=== PATIENT | female | born 1950 | race Caucasian/White ===

== ENCOUNTER 2017-11-25 22:26 | Inpatient (IN) | payer MEDICARE ==
[2017-11-25] MEDS ORDERED: MORPHINE SULFATE 4MG/ML PREFILLED SYRINGE IVP ONE (22:36)
[2017-11-25] MEDS ORDERED: ONDANSETRON HCL IV 4 MG/2 ML VIAL IVP ONE (22:36)
--- NOTE | 2017-11-25 22:41 | Emergency Department Record ---
History of Present Illness - General Chief complaint: Nausea, Vomiting, Diarrhea Stated complaint: VDIARRHEA WITH BLOOD,VOMITING Time Seen by Provider: 11/25/17 22:35 Source: Patient Mode of Arrival: Ambulatory Limitations: No limitations - History of Present Illness Initial comments: 67 yo female presents to ED for evaluation of nausea, vomiting, and blood diarrhea that began approximately 4-5 hours ago. Patient denies recent illness , reports that she ate dinner this evening and felt fine before her symptoms began. Patient denies the use of anticoagulation medications, denies previous abdominal surgeries, and denies health problems at her baseline. MD complaint: Abdominal pain, Diarrhea, Nausea, Vomiting Onset/Timin -: Hour(s) Description of Diarrhea: Bloody Associated Abdominal Pain: Yes Location: Diffuse Severity: Moderate Quality: Cramping Consistency: Constant Improves with: None Worsens with: None Associated Symptoms: Denies other symptoms - Related Data Home Medications Medication Instructions Recorded Confirmed Last Taken Hydrochlorothiazide [Hctz] 50 mg PO DAILY 11/26/17 11/26/17 Unknown Allergies Allergy/AdvReac Type Severity Reaction Status Date / Time No Known Drug Allergies Allergy Verified 11/25/17 22:43 Review of Systems Constitutional: Denies: Chills, Fever, Malaise, Night sweats Eyes: Denies: Eye discharge, Eye pain ENT: Denies: Congestion, Ear pain, Epistaxis Respiratory: Denies: Cough, Dyspnea Cardiovascular: Denies: Chest pain, Dyspnea on exertion Endocrine: Denies: Fatigue, Heat or cold intolerance Gastrointestinal: Reports: Abdominal pain, Diarrhea, Nausea, Vomiting Genitourinary: Denies: Incontinence, Retention Musculoskeletal: Denies: Arthralgia, Back pain Skin: Denies: Bruising, Change in color, Change in hair/nails Neurological: Denies: Abnormal gait, Confusion, Headache, Seizure Psychiatric: Denies: Anxiety Hematological/Lymphatic: Denies: Anemia, Blood Clots Physical Exam - General General Appearance: Alert, Oriented x3, Cooperative, Moderate distress Limitations: No limitations - Head Head exam: Atraumatic, Normocephalic, Normal inspection Head exam detail: negative: Abrasion, Contusion, Quinn's sign, General tenderness, Hematoma, Laceration - Eye Eye exam: Normal appearance. negative: Conjunctival injection, Periorbital swelling, Periorbital tenderness, Scleral icterus - ENT Ear exam: negative: Auricular hematoma, Auricular trauma Nasal Exam: negative: Active bleeding, Discharge, Dried blood, Foreign body Mouth exam: negative: Drooling, Laceration, Muffled voice, Tongue elevation - Neck Neck exam: Normal inspection. negative: Meningismus, Tenderness - Respiratory Respiratory exam: Normal lung sounds bilaterally. negative: Rales, Respiratory distress, Rhonchi, Stridor - Cardiovascular Cardiovascular Exam: Regular rate, Normal rhythm, Normal heart sounds - GI/Abdominal GI/Abdominal exam: Soft, Tenderness (Mild, diffuse TTP on examination without rebound, guarding, or peritoneal signs). negative: Rebound, Rigid - Rectal Rectal exam: Deferred - exam: Deferred - Extremities Extremities exam: Normal inspection. negative: Pedal edema, Tenderness - Back Back exam: Denies: CVA tenderness (R), CVA tenderness (L) - Neurological Neurological exam: Alert, Normal gait, Oriented X3 - Psychiatric Psychiatric exam: Normal affect, Normal mood - Skin Skin exam: Normal color. negative: Abrasion Type of lesion: negative: abrasion Course Vital Signs 11/25/17 22:33 Pulse Rate [ 92 H Pulse Ox Probe] Respiratory 20 Rate Blood Pressure 148/90 [Left Arm] Pulse Ox 98 - Reevaluation(s) Reevaluation #1: 11/25/17 23:04 Labs reviewed: WBC 14.9, 87% neutrophils AG 20 BUN 29/Creatinine 0.9 Lactic 2.7 Reevaluation #2: 11/26/17 00:05 CT Abdomen and Pelvis: Mild wall thickening of the sigmoid colon, could represent focal colitis Patient was updated on all results, reports continued pain and nausea symptoms. Will administer IV antibiotics, continue potassium replacement, and admit for further evaluation. Reevaluation #3: 11/26/17 06:48 Case was discussed with Christa Walton, will accept admission a this time. Medical Decision Making - Lab Data Result diagrams: 11/25/17 22:42 11/25/17 22:42 Disposition Disposition: Admit Clinical Impression: Colitis Nausea & vomiting Qualifiers: Vomiting type: unspecified Vomiting Intractability: intractable Qualified Code( s): R11.2 - Nausea with vomiting, unspecified Disposition: Still a Patient at [facility] Decision to Admit: Admit from ER Decision to Admit Date: 11/26/17 Decision to Admit Time: 00:07 Condition: (2) Stable Time of Disposition: 00:07 Quality - Quality Measures Quality Measures: N/A - Blood Pressure Screening Does Patient Have Any of the Following: No Blood Pressure Classification: Hypertensive Reading Systolic Measurement: 145 Diastolic Measurement: 79 Screening for High Blood Pressure: < First Hypertensive BP, F/U Documented > [ [id number]] First Hypertensive Follow-up Interventions: Referral to alternative/primary care provider.
[2017-11-25] MEDS ORDERED: 0.9 % SODIUM CHLORIDE 1000ML 1,000 ML IV SCH (22:45)
[2017-11-25 22:47] LABS: BASO % 0.2 % (0-6); EOS % 0.5 % (0-6); HEMATOCRIT 41.9 % (35.0-47.0); LYMPH % 7.3 % (16-45); MEAN CELL VOLUME 91.9 fl (81-97); MEAN CORPUSCULAR HEMOGLOBIN 30.7 pg (27-33); MEAN CORPUSCULAR HGB CONC 33.4 g/dl (32-36); MEAN PLATELET VOLUME 10.1 fl (7.4-10.4); MONO % 4.8 % (0-9); PLATELET COUNT 257 K/uL (130-400); RED BLOOD COUNT 4.56 M/uL (3.80-5.40); RED CELL DISTRIBUTION WIDTH 13.7 % (11.5-14.5); WHITE BLOOD COUNT W/O DIFF 14.9 K/uL (4.2-12.2)
[2017-11-25 23:00] LABS: BLOOD UREA NITROGEN 29 mg/dL (8-23); CREATININE 0.9 mg/dL (0.5-0.9); EST GLOMERULAR FILTRATION RATE > 60 mL/min
[2017-11-25 23:01] LABS: TOTAL PROTEIN 6.9 g/dL (6.6-8.7)
[2017-11-25 23:03] LABS: GLUCOSE,RANDOM 203 mg/dL (74-109)
[2017-11-25 23:06] LABS: ALB/GLOB RATIO 1.9 (1.1-1.8); ALBUMIN 4.5 g/dL (4.0-5.0); ALKALINE PHOSPHATASE 83 U/L (35-104); ALT/SGPT 14 U/L (<33); AST/SGOT 20 U/L (10.0-35.0); LIPASE 32 U/L (13-60)
[2017-11-25 23:12] LABS: ABO GROUP O; RH TYPE POSITIVE
[2017-11-25 23:24] LABS: ANTIBODY SCREEN NEGATIVE (NEGATIVE)
[2017-11-25] MEDS: SOD CHLOR 0.9% WITH KCL 40MEQ 40 MEQ/1,000 ML IV.SOLN IV ONE (23:47)
[2017-11-26] MEDS ORDERED: 0.9 % SODIUM CHLORIDE 1000ML 1,000 ML IV PRN (00:31)
[2017-11-26] MEDS ORDERED: ONDANSETRON HCL IV 4 MG/2 ML VIAL IVP ONE (00:35)
[2017-11-26] MEDS ORDERED: FAMOTIDINE IV 20 MG/2 ML VIAL IVP ONE (01:29)
[2017-11-26] MEDS: MORPHINE SULFATE 4MG/ML PREFILLED SYRINGE IVP PRN ×2 (02:47→06:46)
[2017-11-26] MEDS: ONDANSETRON HCL IV 4 MG/2 ML VIAL IVP PRN (05:56)
[2017-11-26] MEDS ORDERED: SOD CHLOR 0.9% WITH KCL 40MEQ 40 MEQ/1,000 ML IV.SOLN IV ONE (07:28)
[2017-11-26 07:53] LABS: HEMATOCRIT 37.1 % (35.0-47.0); HEMOGLOBIN 12.1 gm/dl (11.6-16.0); MEAN CELL VOLUME 91.8 fl (81-97); MEAN CORPUSCULAR HGB CONC 32.6 g/dl (32-36); PLATELET COUNT 213 K/uL (130-400); RED BLOOD COUNT 4.04 M/uL (3.80-5.40); RED CELL DISTRIBUTION WIDTH 13.4 % (11.5-14.5); WHITE BLOOD COUNT W/O DIFF 11.6 K/uL (4.2-12.2)
[2017-11-26 08:09] LABS: BLOOD UREA NITROGEN 15 mg/dL (8-23); CREATININE 0.7 mg/dL (0.5-0.9); EST GLOMERULAR FILTRATION RATE > 60 mL/min; GLUCOSE,RANDOM 161 mg/dL (74-109)
[2017-11-26] MEDS: SOD CHLOR 0.9% WITH KCL 40MEQ 40 MEQ/1,000 ML IV.SOLN IV ONE (08:38)
--- NOTE | 2017-11-26 08:52 | History & Physical ---
<DILCIA CUMMINGS A - Last Filed: 11/26/17 08:46> History of Present Illness - Date of Service Date of Service for History & Physical: 11/26/17 - History of Present Illness Admitting Diagnosis: Colitis. Intractable nausea/vomiting Travel Screening - Travel/Exposure Within Last 30 Days Have you traveled within the last 30 days?: No - Travel/Exposure Within Last Year Have you traveled outside the [place] in the last year?: No - Additonal Travel Details Have you been exposed to anyone with a communicable illness?: No - Travel Symptoms Symptom Screening: Diarrhea, Vomiting, Stomach Pain, Bleeding Review of Systems Constitutional: Denies: Chills, Fever, Malaise, Night sweats Eyes: Denies: Eye discharge, Eye pain ENT: Denies: Congestion, Ear pain, Epistaxis Respiratory: Denies: Cough, Dyspnea Cardiovascular: Denies: Chest pain, Dyspnea on exertion Endocrine: Denies: Fatigue, Heat or cold intolerance Gastrointestinal: Reports: Abdominal pain, Diarrhea, Nausea, Vomiting Genitourinary: Denies: Incontinence, Retention Musculoskeletal: Denies: Arthralgia, Back pain Skin: Denies: Bruising, Change in color, Change in hair/nails Neurological: Denies: Abnormal gait, Confusion, Headache, Seizure Psychiatric: Denies: Anxiety Hematological/Lymphatic: Denies: Anemia, Blood Clots Past Medical History - SOCIAL HISTORY Smoking Status: Never smoker Alcohol Use: None Drug Use: None - RESPIRATORY Hx Respiratory Disorders: No - CARDIOVASCULAR Hx Cardio Disorders: Yes Hx Hypertension: Yes - NEURO Hx Neuro Disorders: No - GI Hx GI Disorders: No Hx Nausea/Vomiting: Yes (2016) - Hx Genitourinary Disorders: No - ENDOCRINE Hx Endocrine Disorders: No - MUSCULOSKELETAL Hx Musculoskeletal Disorders: No - PSYCH Hx Psych Problems: No - HEMATOLOGY/ONCOLOGY Hx Hematology/Oncology Disorders: No Family Medical History Any Significant Family History?: Yes Hx Cancer: Brother/Sister *Cancer Comment: sister-breast H&P Meds/Allergies - Allergies Allergies: Allergies Allergy/AdvReac Type Severity Reaction Status Date / Time No Known Drug Allergies Allergy Verified 11/25/17 22:43 - Home Medications Home Medications Medication Instructions Recorded Confirmed Last Taken Hydrochlorothiazide [Hctz] 50 mg PO DAILY 11/26/17 11/26/17 Unknown - Active Medications Active Medications: Current Medications Potassium Chloride/Sodium Chloride (Potassium Chl 40meq/) 40 meq in 1,000 mls @ 83 mls/hr IV NOW ONE Stop: 11/26/17 11:07 Last Admin: 11/26/17 08:38 Dose: 250 mls/hr Sodium Chloride () 1,000 mls @ 125 mls/hr IV .Q8H PRN PRN Reason: LARGE VOLUME IV Last Admin: 11/26/17 04:07 Dose: 125 mls/hr Potassium Chloride/Sodium Chloride (Potassium Chl 40meq/) 40 meq in 1,000 mls @ 250 mls/hr IV NOW ONE Stop: 11/26/17 11:27 Last Admin: 11/26/17 08:42 Dose: Not Given Ciprofloxacin Lactate (Cipro) 400 mg in 200 mls @ 200 mls/hr IVPB NOW ONE Stop: 11/26/17 09:43 Metronidazole/Sodium Chloride (Flagyl) 500 mg in 100 mls @ 100 mls/hr IVPB Q8H AMAURI Stop: 12/01/17 08:46 Morphine Sulfate (Morphine Sulfate) 4 mg IVP Q4H PRN PRN Reason: Abdominal Pain Last Admin: 11/26/17 06:46 Dose: 4 mg Ondansetron HCl (Zofran) 4 mg IVP Q4H PRN PRN Reason: NAUSEA Last Admin: 11/26/17 05:56 Dose: 4 mg Physical Exam - Vital Signs Vital Signs: Vital Signs - Last 24 Hrs Temp Pulse Resp BP BP Pulse Ox 11/26/17 08:00 18 11/26/17 07:59 98.8 F 88 18 95/59 97 11/26/17 00:31 97.8 F 97 H 16 145/79 98 11/26/17 00:00 90 20 136/78 100 11/25/17 23:00 87 24 131/71 100 11/25/17 22:49 97.4 F L 11/25/17 22:33 92 H 20 148/90 98 - General General Appearance: Alert, Oriented x3, Cooperative, Moderate distress Limitations: No limitations - Head Head exam: Atraumatic, Normocephalic, Normal inspection Head exam detail: negative: Abrasion, Contusion, Quinn's sign, General tenderness, Hematoma, Laceration - Eye Eye exam: Normal appearance. negative: Conjunctival injection, Periorbital swelling, Periorbital tenderness, Scleral icterus - ENT Ear exam: negative: Auricular hematoma, Auricular trauma Nasal Exam: negative: Active bleeding, Discharge, Dried blood, Foreign body Mouth exam: negative: Drooling, Laceration, Muffled voice, Tongue elevation - Neck Neck exam: Normal inspection. negative: Meningismus, Tenderness - Respiratory Respiratory exam: Normal lung sounds bilaterally. negative: Rales, Respiratory distress, Rhonchi, Stridor - Cardiovascular Cardiovascular Exam: Regular rate, Normal rhythm, Normal heart sounds - GI/Abdominal GI/Abdominal exam: Soft, Tenderness (Mild, diffuse TTP on examination without rebound, guarding, or peritoneal signs). negative: Rebound, Rigid - Rectal Rectal exam: Deferred - exam: Deferred - Extremities Extremities exam: Normal inspection. negative: Pedal edema, Tenderness - Back Back exam: Denies: CVA tenderness (R), CVA tenderness (L) - Neurological Neurological exam: Alert, Normal gait, Oriented X3 - Psychiatric Psychiatric exam: Normal affect, Normal mood - Skin Skin exam: Normal color. negative: Abrasion Type of lesion: negative: abrasion Results - Labs Result Diagrams: 11/26/17 07:47 11/26/17 07:47 Labs Last 24 Hours: Laboratory Results - last 24 hr 11/25/17 11/25/17 11/25/17 22:42 22:42 22:42 WBC 14.9 H RBC 4.56 Hgb 14.0 Hct 41.9 MCV 91.9 MCH 30.7 MCHC 33.4 RDW 13.7 Plt Count 257 MPV 10.1 Neutrophils % 87.0 H Band Neutrophils % 0.0 Lymphocytes % 7.3 L Monocytes % 4.8 Eosinophils % 0.5 Basophils % 0.2 Lymphocytes 8.0 L Monocytes 5.0 Basophils 0.0 Eosinophil Count 0.0 Sodium 141 Potassium 2.8 L* Chloride 95 L Carbon Dioxide 26.0 Anion Gap 20.0 H BUN 29 H Creatinine 0.9 Estimated GFR > 60 Random Glucose 203 H Lactic Acid Cancelled 2.7 H Calcium 9.7 Total Bilirubin 0.40 AST 20 ALT 14 Alkaline Phosphatase 83 Total Protein 6.9 Albumin 4.5 Globulin 2.4 Albumin/Globulin Ratio 1.9 H Lipase 32 ABO Group Rh Factor Antibody Screen 11/25/17 11/26/17 11/26/17 22:42 07:47 07:47 WBC 11.6 RBC 4.04 Hgb 12.1 Hct 37.1 MCV 91.8 MCH 30.0 MCHC 32.6 RDW 13.4 Plt Count 213 MPV 10.0 Neutrophils % 95.0 H Band Neutrophils % Lymphocytes % Monocytes % Eosinophils % Not Reportable Basophils % Not Reportable Lymphocytes 4.0 L Monocytes 1.0 Basophils Eosinophil Count Sodium 143 Potassium 2.6 L* Chloride 102 Carbon Dioxide 25.0 Anion Gap 16.0 BUN 15 Creatinine 0.7 Estimated GFR > 60 Random Glucose 161 H Lactic Acid Calcium 8.2 L Total Bilirubin AST ALT Alkaline Phosphatase Total Protein Albumin Globulin Albumin/Globulin Ratio Lipase ABO Group O Rh Factor Positive Antibody Screen Negative <Jana,Eliana Taryn - Last Filed: 11/26/17 10:13> History of Present Illness - Date of Service Date of Service for History & Physical: 11/26/17 - History of Present Illness History of Present Illness: 67 year old female admitted for intractable nausea, vomiting, diarrhea, abdominal pain, and colitis. Patient's only significant medical history is hypertension. Patient states that her symptoms began after eating dinner last night. She developed sudden onset, sharp, generalized abdominal pain. She then had several episodes of vomiting bile and several episodes of diarrhea with bright red blood. Patient denied having dizziness, syncope, or orthostatic symptoms. Patient presented to the [facility] ED shortly after symptoms began. Patient was seen in the ED on 11/25. While in the ED she received IV fluids, morphine for abdominal pain, and zofran. Initial WBC was elevated at 14.9, and K+ was 2.8. Patient received 40mEq K+ IVPB at that time. Initial imaging also included an abdominal CT which indicated mild thickening of the sigmoid colon, indicative of colitis. 11/26/17: This morning patient reports symptoms have improved. She denies any abdominal pain at this time and has not had any vomiting or diarrhea for several hours. Patient has not yet tried an oral challenge, encouraged to begin clear liquids. WBC this morning decreased to 11.9, K+ remains critically low at 2.6. Additional 40mEq K+ ordered IVPB. PCP: Tyrese Rosales) Review of Systems Gastrointestinal: Reports: Abdominal pain, Diarrhea, Nausea, Vomiting H&P Meds/Allergies - Active Medications Active Medications: Current Medications Potassium Chloride/Sodium Chloride (Potassium Chl 40meq/) 40 meq in 1,000 mls @ 83 mls/hr IV NOW ONE Stop: 11/26/17 11:07 Last Admin: 11/26/17 08:38 Dose: 250 mls/hr Sodium Chloride () 1,000 mls @ 125 mls/hr IV .Q8H PRN PRN Reason: LARGE VOLUME IV Last Admin: 11/26/17 04:07 Dose: 125 mls/hr Potassium Chloride/Sodium Chloride (Potassium Chl 40meq/) 40 meq in 1,000 mls @ 250 mls/hr IV NOW ONE Stop: 11/26/17 11:27 Last Admin: 11/26/17 08:42 Dose: Not Given Ciprofloxacin Lactate (Cipro) 400 mg in 200 mls @ 200 mls/hr IVPB NOW ONE Stop: 11/26/17 10:59 Metronidazole/Sodium Chloride (Flagyl) 500 mg in 100 mls @ 100 mls/hr IVPB Q8H AMAURI Stop: 12/01/17 08:46 Last Admin: 11/26/17 09:18 Dose: 100 mls/hr Morphine Sulfate (Morphine Sulfate) 4 mg IVP Q4H PRN PRN Reason: Abdominal Pain Last Admin: 11/26/17 06:46 Dose: 4 mg Ondansetron HCl (Zofran) 4 mg IVP Q4H PRN PRN Reason: NAUSEA Last Admin: 11/26/17 05:56 Dose: 4 mg Physical Exam - Vital Signs Vital Signs: Vital Signs - Last 24 Hrs Temp Pulse Resp BP BP Pulse Ox 11/26/17 08:00 18 11/26/17 07:59 98.8 F 88 18 95/59 97 11/26/17 00:31 97.8 F 97 H 16 145/79 98 11/26/17 00:00 90 20 136/78 100 11/25/17 23:00 87 24 131/71 100 11/25/17 22:49 97.4 F L 11/25/17 22:33 92 H 20 148/90 98 - General General Appearance: Alert, Oriented x3, Cooperative, No acute distress - Respiratory Respiratory exam: Normal lung sounds bilaterally - Cardiovascular Cardiovascular Exam: Regular rate, Normal rhythm, Normal heart sounds - GI/Abdominal GI/Abdominal exam: Soft, Hypoactive bowel sounds - Neurological Neurological exam: Alert, Oriented X3 - Psychiatric Psychiatric exam: Normal affect - Skin Skin exam: Normal color Results - Labs Result Diagrams: 11/26/17 07:47 11/26/17 07:47 Labs Last 24 Hours: Laboratory Results - last 24 hr 11/25/17 11/25/17 11/25/17 22:42 22:42 22:42 WBC 14.9 H RBC 4.56 Hgb 14.0 Hct 41.9 MCV 91.9 MCH 30.7 MCHC 33.4 RDW 13.7 Plt Count 257 MPV 10.1 Neutrophils % 87.0 H Band Neutrophils % 0.0 Lymphocytes % 7.3 L Monocytes % 4.8 Eosinophils % 0.5 Basophils % 0.2 Lymphocytes 8.0 L Monocytes 5.0 Basophils 0.0 Eosinophil Count 0.0 Sodium 141 Potassium 2.8 L* Chloride 95 L Carbon Dioxide 26.0 Anion Gap 20.0 H BUN 29 H Creatinine 0.9 Estimated GFR > 60 Random Glucose 203 H Lactic Acid Cancelled 2.7 H Calcium 9.7 Total Bilirubin 0.40 AST 20 ALT 14 Alkaline Phosphatase 83 Total Protein 6.9 Albumin 4.5 Globulin 2.4 Albumin/Globulin Ratio 1.9 H Lipase 32 ABO Group Rh Factor Antibody Screen 11/25/17 11/26/17 11/26/17 22:42 07:47 07:47 WBC 11.6 RBC 4.04 Hgb 12.1 Hct 37.1 MCV 91.8 MCH 30.0 MCHC 32.6 RDW 13.4 Plt Count 213 MPV 10.0 Neutrophils % 95.0 H Band Neutrophils % Lymphocytes % Monocytes % Eosinophils % Not Reportable Basophils % Not Reportable Lymphocytes 4.0 L Monocytes 1.0 Basophils Eosinophil Count Sodium 143 Potassium 2.6 L* Chloride 102 Carbon Dioxide 25.0 Anion Gap 16.0 BUN 15 Creatinine 0.7 Estimated GFR > 60 Random Glucose 161 H Lactic Acid Calcium 8.2 L Total Bilirubin AST ALT Alkaline Phosphatase Total Protein Albumin Globulin Albumin/Globulin Ratio Lipase ABO Group O Rh Factor Positive Antibody Screen Negative VTE H&P Assessment - Risk for VTE Risk for VTE: No Risk Level: Low Risk Assessment Date: 11/26/17 Risk Assessment Time: 09:00 VTE Orders Placed or Will Be Placed: No VTE Reason for No Prophylaxis: Contraindicated (GI bleed) Plan - Detailed Diagnosis and Plan (1) Nausea & vomiting Current Visit: Yes Status: Acute Qualifiers: Vomiting type: unspecified Vomiting Intractability: intractable Qualified Code(s): R11.2 - Nausea with vomiting, unspecified Base Code: R11.2 - NAUSEA WITH VOMITING, UNSPECIFIED Comment: 11/26/17: Patient presents with intractable nausea and vomiting that started last night. - Begin clear liquid oral challenge - Zofran ordered PRN - Receiving IV fluids 0.9%NS for rehydration (2) Colitis Current Visit: Yes Status: Acute Base Code: K52.9 - NONINFECTIVE GASTROENTERITIS AND COLITIS, UNSPECIFIED Comment: 11/26/17: Initial CT results indicate mild sigmoid colon thickening due to colitis. - Patient to begin Cipro 400mg q24h and Flagyl 500mg q8h - Discussed with patient need for outpatient GI referral with colonoscopy. Not ordered at this time due to patient report of blood in stools. (3) Hypokalemia Current Visit: Yes Status: Acute Base Code: E87.6 - HYPOKALEMIA Comment: : Potassium 2.6 this morning. - 40mEq K+ IVPB - Will recheck the potassium 1600 and assess need for further replacement at that time. (4) VTE (venous thromboembolism) Current Visit: Yes Status: Acute Base Code: I82.90 - ACUTE EMBOLISM AND THROMBOSIS OF UNSPECIFIED VEIN Comment: 11/26/17: Patient not receiving VTE prophylaxis at this time. Patient ambulating in room to bathroom. Further prophylaxis contraindicated at this time due to GI bleeding. (5) Full code status Current Visit: Yes Status: Acute Base Code: Z78.9 - OTHER SPECIFIED HEALTH STATUS Comment: 11/26/17: Patient full code status this admission. - Disposition Will observe patient for 24 hours to ensure tolerating oral intake. Patient likely able to discharge home at that time.
--- NOTE | 2017-11-26 09:13 | CT SCAN REPORT ---
EXAM: CT OF THE ABDOMEN AND PELVIS HISTORY: VOMITING. TECHNIQUE: CT of the abdomen and pelvis was performed following the IV administration of 100 ml of Omnipaque 300 contrast. Lack of oral contrast limits evaluation of bowel. Comparison: None. FINDINGS: Limited evaluation of the lung bases is unremarkable. The osseous structures are grossly intact. Hypodensity in the left hepatic lobe likely reflecting cyst measuring 2.1 x 1.6 cm. The liver is otherwise unremarkable. The spleen, adrenal glands, and pancreas are unremarkable. Subcentimeter renal cysts are noted bilaterally. The kidneys are otherwise unremarkable. The gallbladder is present. Subjective wall thickening of the stomach. No gross evidence for bowel obstruction, however, there is suggestion of diffuse wall thickening of the descending and sigmoid colons with some equivocal surrounding inflammation. Findings are suggestive of nonspecific colitis. There is also some subjective wall thickening of the transverse colon. A few mildly prominent fluid filled loops of small bowel are present distally. No free air or free fluid. A few sigmoid diverticula are noted. Normal appendix. IMPRESSION: 1. FINDINGS SUGGESTIVE OF NONSPECIFIC COLITIS INVOLVING THE PORTIONS OF THE DISTAL TRANSVERSE, DESCENDING AND SIGMOID COLONS. CORRELATION WITH COLONOSCOPY RECOMMENDED. 2. THERE ARE A FEW MILDLY PROMINENT FLUID FILLED LOOPS OF DISTAL SMALL BOWEL WHICH MAY REFLECT FOCAL ILEUS. 3. SUBJECTIVE WALL THICKENING OF THE STOMACH. NONSPECIFIC GASTRITIS IS NOT EXCLUDED. 4. HEPATIC AND RENAL CYSTS. JOB NUMBER: [id number] [facility]
[2017-11-26] MEDS: METRONIDAZOLE IVPB 500 MG/100 ML BAG IVPB SCH ×2 (09:18→17:08)
[2017-11-26] MEDS ORDERED: CIPROFLOXACIN LACTATE/D5W 400 MG/200 ML BAG IVPB ONE (10:00)
[2017-11-26 16:30] LABS: BLOOD UREA NITROGEN 11 mg/dL (8-23); CREATININE 0.6 mg/dL (0.5-0.9); EST GLOMERULAR FILTRATION RATE > 60 mL/min; GLUCOSE,RANDOM 124 mg/dL (74-109)
[2017-11-26] MEDS ORDERED: POTASSIUM CHLORIDE 20 MEQ TABLET PO ONE (16:55)
[2017-11-27] MEDS: METRONIDAZOLE IVPB 500 MG/100 ML BAG IVPB SCH ×3 (00:58→16:42)
[2017-11-27] MEDS: ONDANSETRON HCL IV 4 MG/2 ML VIAL IVP PRN ×3 (06:39→21:18)
[2017-11-27 06:44] LABS: BASO % 0.1 % (0-6); GRAN % 77.4 % (47-80); HEMATOCRIT 39.9 % (35.0-47.0); HEMOGLOBIN 13.2 gm/dl (11.6-16.0); LYMPH % 15.1 % (16-45); MEAN CELL VOLUME 93.2 fl (81-97); MEAN CORPUSCULAR HEMOGLOBIN 30.8 pg (27-33); MEAN CORPUSCULAR HGB CONC 33.1 g/dl (32-36); MEAN PLATELET VOLUME 10.3 fl (7.4-10.4); MONO % 6.4 % (0-9); PLATELET COUNT 209 K/uL (130-400); RED BLOOD COUNT 4.28 M/uL (3.80-5.40); WHITE BLOOD COUNT W/O DIFF 13.8 K/uL (4.2-12.2)
[2017-11-27 06:57] LABS: BLOOD UREA NITROGEN 7 mg/dL (8-23); CREATININE 0.6 mg/dL (0.5-0.9); EST GLOMERULAR FILTRATION RATE > 60 mL/min; GLUCOSE,RANDOM 101 mg/dL (74-109)
[2017-11-27] MEDS ORDERED: CIPROFLOXACIN LACTATE/D5W 400 MG/200 ML BAG IVPB ONE (09:57)
--- NOTE | 2017-11-27 10:04 | Physician Progress Note ---
Subjective - Date Date of Physician Progress Note: 11/27/17 - Subjective Subjective Comment: 11/27/17: Patient resting comfortably in bed. States she has had 2 episodes of bloody diarrhea since yesterday. States she had abdominal pain at that time, but it has since resolved and did not require any pain medication. Patient also complains of intermittent nausea, denies vomiting. Location: Abdomen Radiation: Non-Radiating Improves with: None Worsens with: None Associated symptoms: Nausea/vomiting, Other (diarrhea) Objective - Vital Signs Vital Signs: Vital Signs - Last 24 Hrs Temp Pulse Resp BP BP Pulse Ox 11/27/17 09:00 98.6 F 78 16 122/73 94 L 11/27/17 07:41 16 11/27/17 01:00 97.5 F L 81 16 109/62 96 11/26/17 17:15 99.3 F 100 H 18 129/71 96 - General General Appearance: Alert, Oriented x3, Cooperative, No acute distress Limitations: No limitations - Head Head exam: Atraumatic, Normocephalic, Normal inspection Head exam detail: negative: Abrasion, Contusion, Quinn's sign, General tenderness, Hematoma, Laceration - Eye Eye exam: Normal appearance. negative: Conjunctival injection, Periorbital swelling, Periorbital tenderness, Scleral icterus - ENT Ear exam: negative: Auricular hematoma, Auricular trauma Nasal Exam: negative: Active bleeding, Discharge, Dried blood, Foreign body Mouth exam: negative: Drooling, Laceration, Muffled voice, Tongue elevation - Neck Neck exam: Normal inspection. negative: Meningismus, Tenderness - Respiratory Respiratory exam: Normal lung sounds bilaterally - Cardiovascular Cardiovascular Exam: Regular rate, Normal rhythm, Normal heart sounds - GI/Abdominal GI/Abdominal exam: Soft, Hyperactive bowel sounds, Tenderness (lower abdominal ) - Rectal Rectal exam: Deferred - exam: Deferred - Extremities Extremities exam: Normal inspection. negative: Pedal edema, Tenderness - Back Back exam: Denies: CVA tenderness (R), CVA tenderness (L) - Neurological Neurological exam: Alert, Oriented X3 - Psychiatric Psychiatric exam: Normal affect - Skin Skin exam: Normal color Type of lesion: negative: abrasion Assessment and Plan - Assessment and Plan (1) Nausea & vomiting Current Visit: Yes Status: Acute Qualifiers: Vomiting type: unspecified Vomiting Intractability: intractable Qualified Code(s): R11.2 - Nausea with vomiting, unspecified Base Code: R11.2 - NAUSEA WITH VOMITING, UNSPECIFIED Comment: 11/27/17: Patient presents with intractable nausea and vomiting that started 11/25. Has not had any more episodes of vomiting but was nauseated this morning - Advance diet as tolerated - Zofran ordered PRN (2) Colitis Current Visit: Yes Status: Acute Base Code: K52.9 - NONINFECTIVE GASTROENTERITIS AND COLITIS, UNSPECIFIED Comment: 11/27/17: Initial CT results indicate mild sigmoid colon thickening due to colitis. Patient has had 2 more blood diarrhea stools since admission, unable to catch for sample. - Continue Cipro 400mg q24h and Flagyl 500mg q8h - Stool cultures ordered, will continue to attempt to obtain - Continue to advance diet, montitor for continued diarrhea, vomiting, or abdominal pain. - Discussed with patient need for outpatient GI referral with colonoscopy. Not ordered at this time due to patient report of blood in stools. (3) Hypokalemia Current Visit: Yes Status: Acute Base Code: E87.6 - HYPOKALEMIA Comment: : Potassium 3.4 this morning. - Will continue to monitor with morning BMP lab draw (4) VTE (venous thromboembolism) Current Visit: Yes Status: Acute Base Code: I82.90 - ACUTE EMBOLISM AND THROMBOSIS OF UNSPECIFIED VEIN Comment: 11/27/17: Patient not receiving VTE prophylaxis at this time. Patient low risk, ambulating in room to bathroom. Further prophylaxis contraindicated at this time due to GI bleeding. (5) Full code status Current Visit: Yes Status: Acute Base Code: Z78.9 - OTHER SPECIFIED HEALTH STATUS Comment: 11/27/17: Patient full code status this admission. - Disposition Disposition: Will observe patient for 24 hours to ensure tolerating oral intake. Patient likely able to discharge home at that time. 11/27/17: Due to continued bloody bowel movements, will continue to monitor patient an additional 24-48 hours Results - Labs Result Diagrams: 11/27/17 06:31 11/27/17 06:31 Labs Last 24 Hours: Laboratory Results - last 24 hr 11/26/17 11/26/17 11/27/17 16:10 18:00 06:17 WBC RBC Hgb Hct MCV MCH MCHC RDW Plt Count MPV Gran % Lymphocytes % Monocytes % Eosinophils % Basophils % Sodium 145 Potassium 3.1 L Chloride 105 Carbon Dioxide 25.0 Anion Gap 15.0 BUN 11 Creatinine 0.6 Estimated GFR > 60 Random Glucose 124 H Lactic Acid 0.9 Calcium 8.0 L Stool Occult Blood Positive H 11/27/17 11/27/17 06:31 06:31 WBC 13.8 H RBC 4.28 Hgb 13.2 Hct 39.9 MCV 93.2 MCH 30.8 MCHC 33.1 RDW 14.0 Plt Count 209 MPV 10.3 Gran % 77.4 Lymphocytes % 15.1 L Monocytes % 6.4 Eosinophils % 1.0 Basophils % 0.1 Sodium 144 Potassium 3.4 Chloride 106 Carbon Dioxide 25.0 Anion Gap 13.0 BUN 7 L Creatinine 0.6 Estimated GFR > 60 Random Glucose 101 Lactic Acid Cancelled Calcium 8.6 L Stool Occult Blood DVT/PE Assessment - Risk for VTE Risk for VTE: No Risk Level: Low Risk Assessment Date: 11/26/17 Risk Assessment Time: 09:00 VTE Orders Placed or Will Be Placed: No VTE Reason for No Prophylaxis: Contraindicated (GI bleed) - Active Medicaitons Current Medications: Current Medications Metronidazole/Sodium Chloride (Flagyl) 500 mg in 100 mls @ 100 mls/hr IVPB Q8H AMAURI Stop: 12/01/17 08:46 Last Admin: 11/27/17 08:45 Dose: 100 mls/hr Ciprofloxacin Lactate (Cipro) 400 mg in 200 mls @ 200 mls/hr IVPB DAILY ONE Stop: 11/27/17 10:56 Morphine Sulfate (Morphine Sulfate) 4 mg IVP Q4H PRN PRN Reason: Abdominal Pain Last Admin: 11/26/17 06:46 Dose: 4 mg Ondansetron HCl (Zofran) 4 mg IVP Q4H PRN PRN Reason: NAUSEA Last Admin: 11/27/17 06:39 Dose: 4 mg AMI Plan - Labs Result Diagrams: 11/27/17 06:31 11/27/17 06:31
--- NOTE | 2017-11-27 14:08 | Inpatient Certification ---
Inpatient Certification Admit to inpatient care: Based on my medical assessment, after consideration of patient's risk factors (age, co-morbidities and patient presenting symptoms and acuity), I expect that this patient will remain in the hospital greater than or equal to two midnights and that the services needed warrant inpatient care because: Patient Risk Factors: [colitis, hypokalemia] Estimated length of stay: [72-96 hrs] The patient may reasonably be expected to be discharged or transferred to a hospital within 96 hours after admission to . Services needed: [] Post hospital care (if known): [] I certify that my determination is in accordance with my understanding of Medicare requirements for reasonable and necessary inpatient services. 11/27/17 14:07
[2017-11-27] MEDS: MORPHINE SULFATE 4MG/ML PREFILLED SYRINGE IVP PRN ×2 (16:21→21:19)
[2017-11-27] MEDS ORDERED: PROMETHAZINE HCL 12.5 MG in 0.9 % SODIUM CHLORIDE 100ML 100 ML IVPB PRN (16:30)
[2017-11-27] MEDS ORDERED: 0.9 % SODIUM CHLORIDE 1000ML 1,000 ML IV PRN (16:38)
[2017-11-27] MEDS ORDERED: 0.9 % SODIUM CHLORIDE 100ML BAG IV SCH (16:45)
[2017-11-27] MEDS: PANTOPRAZOLE SODIUM IV 40 MG VIAL IVP SCH (19:02)
[2017-11-28] MEDS: METRONIDAZOLE IVPB 500 MG/100 ML BAG IVPB SCH ×3 (00:49→16:28)
[2017-11-28 06:48] LABS: BLOOD UREA NITROGEN 9 mg/dL (8-23); CREATININE 0.7 mg/dL (0.5-0.9); EST GLOMERULAR FILTRATION RATE > 60 mL/min; GLUCOSE,RANDOM 88 mg/dL (74-109)
[2017-11-28] MEDS ORDERED: SOD CHLOR 0.9% WITH KCL 40MEQ 40 MEQ/1,000 ML IV.SOLN IV ONE (08:49)
[2017-11-28] MEDS ORDERED: CIPROFLOXACIN LACTATE/D5W 400 MG/200 ML BAG IVPB ONE (08:50)
--- NOTE | 2017-11-28 08:57 | Physician Progress Note ---
Subjective - Date Date of Physician Progress Note: 11/28/17 - Subjective Subjective Comment: 11/28/17: Patient resting comfortably in bed. States she has not had any bowel movements in the past 24 hours. However, the patient began having vomiting and dry heaves yesterday after advancing her diet. Required zofran and phenergan IV. Patient reports severe burning abdominal pain at that time. This morning patient denies any abdominal pain, nausea, vomiting, or diarrhea. States she is tolerating small sips of clear liquids well at this time. Objective - Vital Signs Vital Signs: Vital Signs - Last 24 Hrs Temp Pulse Resp BP Pulse Ox 11/28/17 01:00 98.1 F 84 16 125/64 96 11/27/17 21:00 20 11/27/17 17:14 97.8 F 109 H 20 138/117 96 11/27/17 14:59 98.5 F 93 H 18 136/77 95 11/27/17 09:00 98.6 F 78 16 122/73 94 L - General General Appearance: Alert, Oriented x3, Cooperative, No acute distress Limitations: No limitations - Head Head exam: Atraumatic, Normocephalic, Normal inspection Head exam detail: negative: Abrasion, Contusion, Quinn's sign, General tenderness, Hematoma, Laceration - Eye Eye exam: Normal appearance. negative: Conjunctival injection, Periorbital swelling, Periorbital tenderness, Scleral icterus - ENT Ear exam: negative: Auricular hematoma, Auricular trauma Nasal Exam: negative: Active bleeding, Discharge, Dried blood, Foreign body Mouth exam: negative: Drooling, Laceration, Muffled voice, Tongue elevation - Neck Neck exam: Normal inspection. negative: Meningismus, Tenderness - Respiratory Respiratory exam: Normal lung sounds bilaterally - Cardiovascular Cardiovascular Exam: Regular rate, Normal rhythm, Normal heart sounds - GI/Abdominal GI/Abdominal exam: Soft, Normal bowel sounds, Tenderness (lower abdominal ) - Rectal Rectal exam: Deferred - exam: Deferred - Extremities Extremities exam: Normal inspection, Full ROM. negative: Pedal edema, Tenderness - Back Back exam: Denies: CVA tenderness (R), CVA tenderness (L) - Neurological Neurological exam: Alert, Oriented X3 - Psychiatric Psychiatric exam: Normal affect - Skin Skin exam: Normal color Type of lesion: negative: abrasion Assessment and Plan - Assessment and Plan (1) Nausea & vomiting Current Visit: Yes Status: Acute Qualifiers: Vomiting type: unspecified Vomiting Intractability: intractable Qualified Code(s): R11.2 - Nausea with vomiting, unspecified Base Code: R11.2 - NAUSEA WITH VOMITING, UNSPECIFIED Comment: 11/28/17: Patient presents with intractable nausea and vomiting that started 11/25. Had several episodes of vomiting throughout the night requiring zofran and phenergan. - Remain on clear liquid diet at this time - Zofran ordered PRN - 0.9% NS @ 75ml/hr for rehydration (2) Colitis Current Visit: Yes Status: Acute Base Code: K52.9 - NONINFECTIVE GASTROENTERITIS AND COLITIS, UNSPECIFIED Comment: 11/28/17: Initial CT results indicate mild sigmoid colon thickening due to colitis. Patient has had 2 more bloody diarrhea stools since admission. Deneis abdominal pain today, no bowel movement in the past 24 hours - Continue Cipro 400mg q24h and Flagyl 500mg q8h - Stool cultures ordered - Cautiously advance diet, remain on clear liquids if necessary montitor for continued diarrhea, vomiting, or abdominal pain. - Discussed with patient need for outpatient GI referral with colonoscopy. Not ordered at this time due to patient report of blood in stools. (3) Hypokalemia Current Visit: Yes Status: Acute Base Code: E87.6 - HYPOKALEMIA Comment: : Potassium 3.1 this morning. - Replaced with 40mEq K+ IVPB - Will recheck BMP tomorrow (4) VTE (venous thromboembolism) Current Visit: Yes Status: Acute Base Code: I82.90 - ACUTE EMBOLISM AND THROMBOSIS OF UNSPECIFIED VEIN Comment: 11/28/17: Patient not receiving VTE prophylaxis at this time. Patient low risk, ambulating in room to bathroom. Further prophylaxis contraindicated at this time due to GI bleeding. (5) Full code status Current Visit: Yes Status: Acute Base Code: Z78.9 - OTHER SPECIFIED HEALTH STATUS Comment: 11/28/17: Patient full code status this admission. - Disposition Disposition: Will observe patient for 24 hours to ensure tolerating oral intake. Patient likely able to discharge home at that time. 11/27/17: Due to continued bloody bowel movements, will continue to monitor patient an additional 24-48 hours Results - Labs Result Diagrams: 11/27/17 06:31 11/28/17 06:10 Labs Last 24 Hours: Laboratory Results - last 24 hr 11/28/17 06:10 Sodium 144 Potassium 3.1 L Chloride 102 Carbon Dioxide 27.0 Anion Gap 15.0 BUN 9 Creatinine 0.7 Estimated GFR > 60 Random Glucose 88 Calcium 8.3 L DVT/PE Assessment - Risk for VTE Risk for VTE: No Risk Level: Low Risk Assessment Date: 11/26/17 Risk Assessment Time: 09:00 VTE Orders Placed or Will Be Placed: No VTE Reason for No Prophylaxis: Contraindicated (GI bleed) - Active Medicaitons Current Medications: Current Medications Metronidazole/Sodium Chloride (Flagyl) 500 mg in 100 mls @ 100 mls/hr IVPB Q8H AMAURI Stop: 12/01/17 08:46 Last Infusion: 11/28/17 05:33 Dose: Infused Promethazine HCl 12.5 mg/ (Sodium Chloride) 100.5 mls @ 200 mls/hr IVPB Q6H PRN PRN Reason: NAUSEA/VOMITING Last Infusion: 11/28/17 00:32 Dose: Infused Sodium Chloride () 1,000 mls @ 75 mls/hr IV .[id number] PRN PRN Reason: LARGE VOLUME IV Last Admin: 11/27/17 16:47 Dose: 75 mls/hr Morphine Sulfate (Morphine Sulfate) 4 mg IVP Q4H PRN PRN Reason: Abdominal Pain Last Admin: 11/27/17 21:19 Dose: 4 mg Ondansetron HCl (Zofran) 4 mg IVP Q4H PRN PRN Reason: NAUSEA Last Admin: 11/27/17 21:18 Dose: 4 mg Pantoprazole Sodium (Protonix Iv) 40 mg IVP Q24H AMAURI Last Admin: 11/27/17 19:02 Dose: 40 mg AMI Plan - Labs Result Diagrams: 11/27/17 06:31 11/28/17 06:10
[2017-11-28] MEDS: PANTOPRAZOLE SODIUM IV 40 MG VIAL IVP SCH (19:30)
[2017-11-29] MEDS: METRONIDAZOLE IVPB 500 MG/100 ML BAG IVPB SCH (01:44)
[2017-11-29 06:33] LABS: BLOOD UREA NITROGEN 8 mg/dL (8-23); CREATININE 0.6 mg/dL (0.5-0.9); EST GLOMERULAR FILTRATION RATE > 60 mL/min; GLUCOSE,RANDOM 78 mg/dL (74-109)
--- NOTE | 2017-11-29 08:23 | Discharge Summary ---
<Eliana Bates - Last Filed: 11/29/17 11:20> Providers Discharge Summary Date: 11/29/17 Date of admission: 11/27/17 09:51 Attending physician: DILCIA CUMMINGS Primary care physician: CRISTIAN CABA D.O. Physical Exam - Vital Signs Vital Signs: Vital Signs - Last 24 Hrs Temp Pulse Resp BP Pulse Ox 11/29/17 01:00 98.3 F 71 18 126/78 96 11/28/17 20:21 86 18 11/28/17 17:00 98.1 F 86 18 122/76 96 11/28/17 09:00 98.5 F 94 H 18 135/81 97 - General General Appearance: Alert, Oriented x3, Cooperative, No acute distress Limitations: No limitations - Head Head exam: Atraumatic, Normocephalic, Normal inspection Head exam detail: negative: Abrasion, Contusion, Quinn's sign, General tenderness, Hematoma, Laceration - Eye Eye exam: Normal appearance. negative: Conjunctival injection, Periorbital swelling, Periorbital tenderness, Scleral icterus - ENT Ear exam: negative: Auricular hematoma, Auricular trauma Nasal Exam: negative: Active bleeding, Discharge, Dried blood, Foreign body Mouth exam: negative: Drooling, Laceration, Muffled voice, Tongue elevation - Neck Neck exam: Normal inspection. negative: Meningismus, Tenderness - Respiratory Respiratory exam: Normal lung sounds bilaterally - Cardiovascular Cardiovascular Exam: Regular rate, Normal rhythm, Normal heart sounds - GI/Abdominal GI/Abdominal exam: Soft, Normal bowel sounds - Rectal Rectal exam: Deferred - exam: Deferred - Extremities Extremities exam: Normal inspection, Full ROM. negative: Pedal edema, Tenderness - Back Back exam: Denies: CVA tenderness (R), CVA tenderness (L) - Neurological Neurological exam: Alert, Oriented X3 - Psychiatric Psychiatric exam: Normal affect - Skin Skin exam: Normal color Type of lesion: negative: abrasion Hospitalization - Hospitalization Admission Diagnosis: Colitis. Intractable nausea/vomiting - Problem List/Discharge Diagnosis (1) Nausea & vomiting Current Visit: Yes Status: Acute Discharge Diagnosis: Vomiting type: unspecified Vomiting Intractability: intractable Qualified Code(s): R11.2 - Nausea with vomiting, unspecified Base Code: R11.2 - NAUSEA WITH VOMITING, UNSPECIFIED Comment: 11/29/17: Patient presents with intractable nausea and vomiting that started 11/25. Has been tolerating a full liquid diet. - Advance diet as tolerated to a bland diet - Zofran ordered PRN (2) Colitis Current Visit: Yes Status: Acute Base Code: K52.9 - NONINFECTIVE GASTROENTERITIS AND COLITIS, UNSPECIFIED Comment: 11/28/17: Initial CT results indicate mild sigmoid colon thickening due to colitis. Patient has had 2 more bloody diarrhea stools since admission. Deneis abdominal pain today, no bowel movement in the past 48 hours - Continue Cipro 400mg q24h and Flagyl 500mg q8h - Stool cultures ordered - Cautiously advance diet, montitor for continued diarrhea, vomiting, or abdominal pain. - Discussed with patient need for outpatient GI referral with colonoscopy. Not ordered at this time due to patient report of blood in stools. (3) Hypokalemia Current Visit: Yes Status: Acute Base Code: E87.6 - HYPOKALEMIA Comment: : Potassium 3.6 this morning. -No need for further replacement at this time. -Likely no need to further monitor as patient is advancing diet and no longer vomiting. (4) VTE (venous thromboembolism) Current Visit: Yes Status: Acute Base Code: I82.90 - ACUTE EMBOLISM AND THROMBOSIS OF UNSPECIFIED VEIN Comment: 11/29/17: Patient not receiving VTE prophylaxis at this time. Patient low risk, ambulating in room to bathroom. Further prophylaxis contraindicated at this time due to GI bleeding. (5) Full code status Current Visit: Yes Status: Acute Base Code: Z78.9 - OTHER SPECIFIED HEALTH STATUS Comment: 11/29/17: Patient full code status this admission. - Disposition Will observe patient for 24 hours to ensure tolerating oral intake. Patient likely able to discharge home at that time. 11/27/17: Due to continued bloody bowel movements, will continue to monitor patient an additional 24-48 hours - Hospitalization Course Hospital Course: 67 year old female admitted for intractable nausea, vomiting, diarrhea, abdominal pain, and colitis. Patient's only significant medical history is hypertension. Patient states that her symptoms began after eating dinner last night. She developed sudden onset, sharp, generalized abdominal pain. She then had several episodes of vomiting bile and several episodes of diarrhea with bright red blood. Patient denied having dizziness, syncope, or orthostatic symptoms. Patient presented to the [facility] ED shortly after symptoms began. Patient was seen in the ED on 11/25. While in the ED she received IV fluids, morphine for abdominal pain, and zofran. Initial WBC was elevated at 14.9, and K+ was 2.8. Patient received 40mEq K+ IVPB at that time. Initial imaging also included an abdominal CT which indicated mild thickening of the sigmoid colon, indicative of colitis. 11/26/17: This morning patient reports symptoms have improved. She denies any abdominal pain at this time and has not had any vomiting or diarrhea for several hours. Patient has not yet tried an oral challenge, encouraged to begin clear liquids. WBC this morning decreased to 11.9, K+ remains critically low at 2.6. Additional 40mEq K+ ordered IVPB. PCP: Tyrese Rosales) Patient had intermittent vomiting and abdominal pain throughout her stay as she advanced her diet, requiring IV zofran and Phenergan. Patient has been receiving Cipro and Flagyl for 3 days. Patient denies any further bloody bowel movements since admission. Have been monitoring BMP as potassium has been low and required replacement. 11/29/17: Patient alert and oriented x 3. Sitting up in bed this morning, denies abdominal pain, nausea, or vomiting. Has been tolerating a full liquid diet without nausea or vomiting for the past 24 hours. Will advance to bland solids today before discharge to ensure patient is tolerating. Patient agreeable to follow-up with her PCP next week and schedule GI referral and scope through her primary. Procedures: Imaging and X-Rays 11/25/17 22:36 ABDOMEN/PELVIS W CONTRAST [CT] Stat Abnormal Labs: Abnormal Lab Results 11/25/17 11/25/17 11/25/17 Range/Units 22:42 22:42 22:42 WBC 14.9 H (4.2-12.2) K/uL Neutrophils % 87.0 H (47-80) % Lymphocytes % 7.3 L (16-45) % Lymphocytes 8.0 L (16-45) % Potassium 2.8 L* (3.4-4.5) mmol/L Chloride 95 L (98-107) mmol/L Anion Gap 20.0 H (7-16) BUN 29 H (8-23) mg/dL Random Glucose 203 H (74-109) mg/dL Lactic Acid 2.7 H (0.5-2.2) mmol/L Calcium (8.8-10.2) mg/dL Albumin/Globulin Ratio 1.9 H (1.1-1.8) Stool Occult Blood (NEGATIVE) 11/26/17 11/26/17 11/26/17 Range/Units 07:47 07:47 16:10 WBC (4.2-12.2) K/uL Neutrophils % 95.0 H (47-80) % Lymphocytes % (16-45) % Lymphocytes 4.0 L (16-45) % Potassium 2.6 L* 3.1 L (3.4-4.5) mmol/L Chloride (98-107) mmol/L Anion Gap (7-16) BUN (8-23) mg/dL Random Glucose 161 H 124 H (74-109) mg/dL Lactic Acid (0.5-2.2) mmol/L Calcium 8.2 L 8.0 L (8.8-10.2) mg/dL Albumin/Globulin Ratio (1.1-1.8) Stool Occult Blood (NEGATIVE) 11/26/17 11/27/17 11/27/17 Range/Units 18:00 06:31 06:31 WBC 13.8 H (4.2-12.2) K/uL Neutrophils % (47-80) % Lymphocytes % 15.1 L (16-45) % Lymphocytes (16-45) % Potassium (3.4-4.5) mmol/L Chloride (98-107) mmol/L Anion Gap (7-16) BUN 7 L (8-23) mg/dL Random Glucose (74-109) mg/dL Lactic Acid (0.5-2.2) mmol/L Calcium 8.6 L (8.8-10.2) mg/dL Albumin/Globulin Ratio (1.1-1.8) Stool Occult Blood Positive H (NEGATIVE) 11/28/17 11/29/17 Range/Units 06:10 06:06 WBC (4.2-12.2) K/uL Neutrophils % (47-80) % Lymphocytes % (16-45) % Lymphocytes (16-45) % Potassium 3.1 L (3.4-4.5) mmol/L Chloride (98-107) mmol/L Anion Gap (7-16) BUN (8-23) mg/dL Random Glucose (74-109) mg/dL Lactic Acid (0.5-2.2) mmol/L Calcium 8.3 L 8.3 L (8.8-10.2) mg/dL Albumin/Globulin Ratio (1.1-1.8) Stool Occult Blood (NEGATIVE) Condition at Discharge: (2) Stable Discharge Medications - Discharge Medications Prescriptions: Ondansetron HCl [Zofran] 4 mg PO Q6HR PRN #20 tablet PRN Reason: Nausea/Vomiting Metronidazole [Flagyl] 500 mg PO Q8HR #5 tablet Ciprofloxacin HCl [Cipro] 500 mg PO Q12HR #3 tablet Hydrocodone/APAP 5/325Mg [[place] 5Mg/325Mg] 1 each PO Q6H PRN #7 tab PRN Reason: Abdominal Pain Home Medications: Ambulatory Orders Hydrochlorothiazide [Hctz] 50 mg PO DAILY 11/26/17 [Last Taken Unknown] Ciprofloxacin HCl [Cipro] 500 mg PO Q12HR #3 tablet 11/29/17 [Last Taken Unknown ] Hydrocodone/APAP 5/325Mg [[place] 5Mg/325Mg] 1 each PO Q6H PRN #7 tab 11/29/17 [ Last Taken Unknown] Metronidazole [Flagyl] 500 mg PO Q8HR #5 tablet 11/29/17 [Last Taken Unknown] Ondansetron HCl [Zofran] 4 mg PO Q6HR PRN #20 tablet 11/29/17 [Last Taken Unknown] Discharge Plan - Discharge Instructions Activity at Discharge: Increase Activity as Tolerated Diet at Discharge: Advance to Usual Diet Additional Instructions: Continue taking antibiotics for the next 2 days Use zofran as needed for nausea and norco as needed for abdominal pain Follow-up with Dr. Caba next week and have him schedule a GI referral and scope for you. Advance diet slowly, adding bland solids as tolerated. Quality Measures - Quality Measures Quality Measures: Advance Directives, Documentation of Current Medications in Medical Record, Elder Maltreatment Screen and Follow-Up Plan, Screening for High Blood Pressure and F/U Documented - Current Medications Quality Measure: Measure #130: Documentation of Current Medications Documentation of Current Medications: <Current Medications Documented/Reviewed> [G7211] - Blood Pressure Screening Quality Measure: Screening for High Blood Pressure and Follow-Up Documented Does Patient Have Any of the Following: Active Dx of HTN Blood Pressure Classification: Hypertensive Reading Systolic Measurement: 140 Diastolic Measurement: 90 Screening for High Blood Pressure: Patient Exclusion, Hx of HTN [G9744] - Advance Directives Quality Measure: Measure #47: Care Plan Advance Directives Established: No Advance Directives Information Provided To Patient: Declined Advance Directives on File: No Living Will: No Power of Foam Fabricator: No Advance Care Planning: Not Discussed or Documented [[id number]] - Elder Abuse Suspicion Index Screening: Elder Abuse Suspicion Index Screening Rely on people for bathing, dressing, shopping, banking, etc: No Prevented from getting food, clothes, medication, etc: No Made to feel shamed or threatened by someone: No Forced to sign papers or use money against will: No Feel afraid, touched in ways not wanted or hurt physically: No Poor eye contact, withdrawn, malnourished, cuts or bruises: No Screening Result: Negative result EASI Reference Information: Brian BYNUM, Gadiel C, Mee D, Milka Hall.Development and validation of a tool to assist physicians identification of elder abuse: The Elder Abuse Suspicion Index (EASI ). Journal of Elder Abuse and Neglect, 2008; 20 (3): 276-300. - Elder Maltreatment Screen Quality Measures: Elder Maltreatment Screen and Follow-Up Plan Elder Maltreatment Screen: <Negative, No Follow-Up Plan Required> [G8734] <DILCIA CUMMINGS - Last Filed: 11/29/17 13:12> Providers Date of admission: 11/27/17 09:51 Attending physician: DILCIA CUMMINGS Primary care physician: CRISTIAN CABA D.O. Physical Exam - Vital Signs Vital Signs: Vital Signs - Last 24 Hrs Temp Pulse Pulse Resp BP Pulse Ox 11/29/17 09:00 98.3 F 70 72 18 140/90 95 11/29/17 01:00 98.3 F 71 18 126/78 96 11/28/17 20:21 86 18 11/28/17 17:00 98.1 F 86 18 122/76 96 Hospitalization - Hospitalization Course Procedures: Imaging and X-Rays 11/25/17 22:36 ABDOMEN/PELVIS W CONTRAST [CT] Stat Abnormal Labs: Abnormal Lab Results 11/25/17 11/25/17 11/25/17 Range/Units 22:42 22:42 22:42 WBC 14.9 H (4.2-12.2) K/uL Neutrophils % 87.0 H (47-80) % Lymphocytes % 7.3 L (16-45) % Lymphocytes 8.0 L (16-45) % Potassium 2.8 L* (3.4-4.5) mmol/L Chloride 95 L (98-107) mmol/L Anion Gap 20.0 H (7-16) BUN 29 H (8-23) mg/dL Random Glucose 203 H (74-109) mg/dL Lactic Acid 2.7 H (0.5-2.2) mmol/L Calcium (8.8-10.2) mg/dL Albumin/Globulin Ratio 1.9 H (1.1-1.8) Stool Occult Blood (NEGATIVE) 11/26/17 11/26/17 11/26/17 Range/Units 07:47 07:47 16:10 WBC (4.2-12.2) K/uL Neutrophils % 95.0 H (47-80) % Lymphocytes % (16-45) % Lymphocytes 4.0 L (16-45) % Potassium 2.6 L* 3.1 L (3.4-4.5) mmol/L Chloride (98-107) mmol/L Anion Gap (7-16) BUN (8-23) mg/dL Random Glucose 161 H 124 H (74-109) mg/dL Lactic Acid (0.5-2.2) mmol/L Calcium 8.2 L 8.0 L (8.8-10.2) mg/dL Albumin/Globulin Ratio (1.1-1.8) Stool Occult Blood (NEGATIVE) 11/26/17 11/27/17 11/27/17 Range/Units 18:00 06:31 06:31 WBC 13.8 H (4.2-12.2) K/uL Neutrophils % (47-80) % Lymphocytes % 15.1 L (16-45) % Lymphocytes (16-45) % Potassium (3.4-4.5) mmol/L Chloride (98-107) mmol/L Anion Gap (7-16) BUN 7 L (8-23) mg/dL Random Glucose (74-109) mg/dL Lactic Acid (0.5-2.2) mmol/L Calcium 8.6 L (8.8-10.2) mg/dL Albumin/Globulin Ratio (1.1-1.8) Stool Occult Blood Positive H (NEGATIVE) 11/28/17 11/29/17 Range/Units 06:10 06:06 WBC (4.2-12.2) K/uL Neutrophils % (47-80) % Lymphocytes % (16-45) % Lymphocytes (16-45) % Potassium 3.1 L (3.4-4.5) mmol/L Chloride (98-107) mmol/L Anion Gap (7-16) BUN (8-23) mg/dL Random Glucose (74-109) mg/dL Lactic Acid (0.5-2.2) mmol/L Calcium 8.3 L 8.3 L (8.8-10.2) mg/dL Albumin/Globulin Ratio (1.1-1.8) Stool Occult Blood (NEGATIVE) Quality Measures - Quality Measures Quality Measures: Advance Directives, Documentation of Current Medications in Medical Record, Elder Maltreatment Screen and Follow-Up Plan, Screening for High Blood Pressure and F/U Documented - Current Medications Quality Measure: Measure #130: Documentation of Current Medications - Blood Pressure Screening Quality Measure: Screening for High Blood Pressure and Follow-Up Documented Does Patient Have Any of the Following: No Blood Pressure Classification: Hypertensive Reading Systolic Measurement: 140 Diastolic Measurement: 90 Screening for High Blood Pressure: < Pre-Hypertensive BP, F/U Documented > [ G8950] Pre-Hypertensive Follow-up Interventions: Follow-up with rescreen every year., Lifestyle modifications. Lifestyle Modification: Weight Reduction, Dietary Approaches to Stop Hypertension (DASH) Eating Plan, Dietary Sodium Restriction - Advance Directives Quality Measure: Measure #47: Care Plan - Elder Abuse Suspicion Index Screening: Elder Abuse Suspicion Index Screening Screening Result: Negative result EASI Reference Information: Brian BYNUM, Gadiel C, Mee D, Milka Hall.Development and validation of a tool to assist physicians identification of elder abuse: The Elder Abuse Suspicion Index (EASI ). Journal of Elder Abuse and Neglect, 2008; 20 (3): 276-300. - Elder Maltreatment Screen Quality Measures: Elder Maltreatment Screen and Follow-Up Plan
[2017-11-29] MEDS ORDERED: CIPROFLOXACIN HCL 500 MG TABLET PO SCH (10:00)
[2017-11-29] MEDS ORDERED: METRONIDAZOLE 250 MG TABLET PO SCH ×2 (10:45→16:00)
== END 2017-11-29 14:25 | disposition home or self-care (01) | DRG 392 ==
LOC: ER 22:26 → MEDSURG 11-26 00:24 → OBSVTOIN 11-27 09:51
PROVIDERS: ADMIT Internal Medicine; ATTEND Internal Medicine
DX: K52.9 Noninfective gastroenteritis and colitis, unspecified (principal); R19.7 Diarrhea, unspecified; I82.90 Acute embolism and thrombosis of unspecified vein; I10 Essential (primary) hypertension; E87.6 Hypokalemia
CPT/HCPCS: 74177; 80048; 80053; 82272; 83605; 83690; 85025; 85027; 86850; 86900; 86901; 87427; 96365; 96374; 96375; 99220; 99233; 99239; 99285; C9113; J2274; J2405; J2550; J3490; J7030

== ENCOUNTER 2018-02-02 09:09 | Observation (INO) | payer MEDICARE ==
[2018-02-02] MEDS ORDERED: 0.9 % SODIUM CHLORIDE 1,000 ML BAG IV ONE ×2 (09:15→10:55)
[2018-02-02] MEDS ORDERED: ONDANSETRON HCL IV 4 MG/2 ML VIAL IVP ONE ×2 (09:15→11:43)
--- NOTE | 2018-02-02 09:22 | Emergency Department Record ---
History of Present Illness - General Chief complaint: Nausea, Vomiting, Diarrhea Stated complaint: VOMITIING,DIARRHEA Time Seen by Provider: 02/02/18 09:12 Source: Patient, Family Mode of Arrival: Ambulatory Limitations: No limitations - History of Present Illness Initial comments: 67 yo female presents with nausea, vomiting and diarrhea. The symptoms are similar to a recent admission to [facility] for nausea, vomiting, diarrhea with mild colitis. CT scan on 11/25/17 were consistent with a non specific colitis of the distal transverse, descending colons with ileus. Her PCP is Dr Xiong. She was admitted 11/25 until 11/29/17. She was treated with Cipro and Flagyl. The plan was for outpatient GI follow up. She has not been seen as an outpatient yet. Her current symptoms started about 3AM with one normal BM then diarrhea followed by nausea, vomiting and cramping, burning pain. No blood in the stools. No blood in the vomiting. She had been feeling normal recently. He appetite had returned to normal. She states she has never had a colonoscopy. MD complaint: Abdominal pain (burning in epigastrium), Diarrhea, Nausea, Vomiting -: Hour(s) Description of Vomiting: Watery Description of Diarrhea: Water Location: Diffuse Radiation: Epigastric Quality: Other (burning) Consistency: Constant Improves with: None Worsens with: Eating Context: Other Associated Symptoms: Loss of appetite, Nausea/vomiting, Other (diarrhea) - Related Data Home Medications Medication Instructions Recorded Confirmed Last Taken Potassium Chloride [Klor-Con] 20 meq PO DAILY 02/02/18 02/02/18 02/01/18 Previous Rx's Medication Instructions Recorded Ondansetron HCl [Zofran] 4 mg PO Q6HR PRN #20 tablet 11/29/17 Allergies Allergy/AdvReac Type Severity Reaction Status Date / Time No Known Drug Allergies Allergy Verified 02/02/18 10:25 Review of Systems Constitutional: Reports: Malaise. Denies: Chills, Fever, Weakness Eyes: Denies: Eye discharge ENT: Denies: Congestion Respiratory: Denies: Cough, Dyspnea, Hemoptysis Cardiovascular: Denies: Chest pain, Dyspnea on exertion, Edema, Palpitations, Syncope Endocrine: Reports: Fatigue Gastrointestinal: Reports: Abdominal pain, Diarrhea, Nausea, Vomiting. Denies: Constipation, Hematemesis, Hematochezia, Melena Genitourinary: Denies: Dysuria, Urgency Musculoskeletal: Denies: Arthralgia, Back pain, Myalgia Skin: Denies: Bruising, Change in color, Rash Psychiatric: Denies: Anxiety Hematological/Lymphatic: Denies: Blood Clots, Easy bleeding, Easy bruising, Swollen glands Past Medical History - SOCIAL HISTORY Smoking Status: Never smoker Drug Use: None - RESPIRATORY Hx Respiratory Disorders: No - CARDIOVASCULAR Hx Cardio Disorders: Yes Hx Hypertension: Yes - NEURO Hx Neuro Disorders: No - GI Hx GI Disorders: No Hx Nausea/Vomiting: Yes (2016) - Hx Genitourinary Disorders: No - ENDOCRINE Hx Endocrine Disorders: No - MUSCULOSKELETAL Hx Musculoskeletal Disorders: No - PSYCH Hx Psych Problems: No - HEMATOLOGY/ONCOLOGY Hx Hematology/Oncology Disorders: No Family Medical History Hx Cancer: Brother/Sister *Cancer Comment: sister-breast Physical Exam - General General Appearance: Alert, Oriented x3, Cooperative, No acute distress, Other ( Vomiting) Limitations: No limitations - Head Head exam: Atraumatic, Normal inspection - Eye Eye exam: Normal appearance. negative: Conjunctival injection, Scleral icterus - ENT ENT exam: Normal exam, Mucous membranes moist Ear exam: Normal external inspection Nasal Exam: Normal inspection Mouth exam: Normal external inspection - Neck Neck exam: Normal inspection, Full ROM. negative: Tenderness - Respiratory Respiratory exam: Normal lung sounds bilaterally. negative: Respiratory distress - Cardiovascular Cardiovascular Exam: Regular rate, Normal rhythm, Normal heart sounds - GI/Abdominal GI/Abdominal exam: Soft, Tenderness (diffusely tender but soft at this time, bowel sounds present, not firm). negative: Distended, Guarding - Rectal Rectal exam: Deferred - exam: Deferred - Extremities Extremities exam: Normal inspection. negative: Pedal edema - Back Back exam: Denies: CVA tenderness (R), CVA tenderness (L) - Neurological Neurological exam: Alert, Oriented X3 - Psychiatric Psychiatric exam: Anxious (vomiting) - Skin Skin exam: Dry, Intact, Normal color, Warm Course - Reevaluation(s) Reevaluation #1: The EMR from the recent admission was reviewed. See HPI. Vitals reviewed. No fever or tachycardia. 02/02/18 09:22 02/02/18 09:46 The CBC was reviewed. WBC is 10 with Hgb of 14 02/02/18 10:55 The lactic acid is 3.4 The CMP demonstrates AG of 20 otherwise it is negative 02/02/18 10:56 The patient remains nauseated with dry heaves. 02/02/18 11:[address] scan of the abdomen is normal without acute abnormality. 02/02/18 11:41 On recheck the patient still has nausea, some dry heaves and burning epigastrium. The abdomen is very soft. No lower tenderness. She has some epigastric tenderness. She will require admission for intractable nausea and vomiting. The diarrhea has stopped. The vitals remain unchanged. 02/02/18 11:42 02/02/18 12:24 The patient is resting comfortably. Repeat labs after additional fluids is planned. 02/02/18 13:05 Doing well. Nausea and pain are improved. Medical Decision Making - Lab Data Result diagrams: 02/02/18 09:30 02/02/18 09:30 Disposition Disposition: Admit Clinical Impression: Nausea & vomiting Qualifiers: Vomiting type: unspecified Vomiting Intractability: unspecified Qualified Code( s): R11.2 - Nausea with vomiting, unspecified Diarrhea Qualifiers: Diarrhea type: unspecified type Qualified Code(s): R19.7 - Diarrhea, unspecified Disposition: Still a Patient at [facility] Decision to Admit: Admit from ER Decision to Admit Date: 02/02/18 Decision to Admit Time: 14:00 Condition: (2) Stable Time of Disposition: 17:59 Quality - Quality Measures Quality Measures: N/A - Blood Pressure Screening Does Patient Have Any of the Following: Active Dx of HTN Blood Pressure Classification: Normal BP Reading Systolic Measurement: 97 Diastolic Measurement: 76 Screening for High Blood Pressure: Patient Exclusion, Hx of HTN [G9744]
[2018-02-02] MEDS ORDERED: MORPHINE SULFATE 10 MG/ML VIAL IVP ONE ×3 (09:26→11:48)
[2018-02-02 09:42] LABS: HEMATOCRIT 43.9 % (35.0-47.0); HEMOGLOBIN 14.7 gm/dl (11.6-16.0); MEAN CELL VOLUME 90.5 fl (81-97); MEAN CORPUSCULAR HEMOGLOBIN 30.3 pg (27-33); MEAN CORPUSCULAR HGB CONC 33.5 g/dl (32-36); MEAN PLATELET VOLUME 10.2 fl (7.4-10.4); PLATELET COUNT 263 K/uL (130-400); RED BLOOD COUNT 4.85 M/uL (3.80-5.40); RED CELL DISTRIBUTION WIDTH 14.7 % (11.5-14.5); WHITE BLOOD COUNT W/O DIFF 10.9 K/uL (4.2-12.2)
[2018-02-02 09:51] LABS: INR 0.9; PARTIAL THROMBOPLASTIN TIME 23.5 SECONDS (24.5-39.1)
[2018-02-02] MEDS ORDERED: PROMETHAZINE HCL 12.5 MG in 0.9 % SODIUM CHLORIDE 100ML 100 ML IVPB ONE (09:52)
[2018-02-02 09:54] LABS: BLOOD UREA NITROGEN 20 mg/dL (8-23); CREATININE 0.6 mg/dL (0.5-0.9); EST GLOMERULAR FILTRATION RATE > 60 mL/min; TOTAL PROTEIN 7.5 g/dL (6.6-8.7)
[2018-02-02 09:56] LABS: GLUCOSE,RANDOM 191 mg/dL (74-109)
[2018-02-02] MEDS ORDERED: PANTOPRAZOLE SODIUM IV 40 MG VIAL IVP ONE (09:58)
[2018-02-02 09:59] LABS: ALBUMIN 4.6 g/dL (4.0-5.0); ALKALINE PHOSPHATASE 81 U/L (35-104); ALT/SGPT 21 U/L (<33); AST/SGOT 26 U/L (10.0-35.0); LIPASE 19 U/L (13-60)
[2018-02-02 10:00] LABS: ALB/GLOB RATIO 1.6 (1.1-1.8)
[2018-02-02 10:27] LABS: URINE APPEARANCE CLEAR; URINE BILIRUBIN NEGATIVE (NEGATIVE); URINE BLOOD NEGATIVE (NEGATIVE); URINE COLOR YELLOW; URINE GLUCOSE (UA) NEGATIVE (NEGATIVE); URINE KETONE 40 mg/dL (NEGATIVE); URINE LEUKOCYTE ESTERASE NEGATIVE (NEGATIVE); URINE NITRITE NEGATIVE (NEGATIVE); URINE PROTEIN NEGATIVE (NEGATIVE); URINE UROBILINOGEN 0.2 E.U./dL (0.20 - 1.00)
[2018-02-02] MEDS ORDERED: ONDANSETRON HCL IV 4 MG/2 ML VIAL IVP PRN (16:01)
[2018-02-02] MEDS ORDERED: MORPHINE SULFATE 10 MG/ML VIAL IVP PRN (16:01)
[2018-02-02] MEDS: ACETAMINOPHEN 500 MG TABLET PO PRN (22:04)
[2018-02-03] MEDS: 0.9 % SODIUM CHLORIDE 1000ML 1,000 ML IV PRN ×2 (03:15→11:17)
[2018-02-03 06:34] LABS: BASO % 0.1 % (0-6); EOS % 1.5 % (0-6); GRAN % 60.7 % (47-80); HEMATOCRIT 36.2 % (35.0-47.0); HEMOGLOBIN 11.2 gm/dl (11.6-16.0); LYMPH % 29.4 % (16-45); MEAN CELL VOLUME 93.5 fl (81-97); MEAN CORPUSCULAR HEMOGLOBIN 28.9 pg (27-33); MEAN CORPUSCULAR HGB CONC 30.9 g/dl (32-36); MEAN PLATELET VOLUME 9.6 fl (7.4-10.4); MONO % 8.3 % (0-9); PLATELET COUNT 214 K/uL (130-400); RED BLOOD COUNT 3.87 M/uL (3.80-5.40); RED CELL DISTRIBUTION WIDTH 14.9 % (11.5-14.5); WHITE BLOOD COUNT W/O DIFF 7.3 K/uL (4.2-12.2)
[2018-02-03] MEDS: ACETAMINOPHEN 500 MG TABLET PO PRN (06:54)
[2018-02-03 07:09] LABS: ALB/GLOB RATIO 1.6 (1.1-1.8); ALBUMIN 3.4 g/dL (4.0-5.0); ALKALINE PHOSPHATASE 55 U/L (35-104); ALT/SGPT 14 U/L (<33); AST/SGOT 19 U/L (10.0-35.0); BLOOD UREA NITROGEN 9 mg/dL (8-23); CREATININE 0.6 mg/dL (0.5-0.9); EST GLOMERULAR FILTRATION RATE > 60 mL/min; GLUCOSE,RANDOM 84 mg/dL (74-109); TOTAL PROTEIN 5.5 g/dL (6.6-8.7)
--- NOTE | 2018-02-03 07:31 | CT SCAN REPORT ---
EXAM: CT OF THE ABDOMEN AND PELVIS WITH CONTRAST HISTORY: NAUSEA, VOMITING AND DIARRHEA. TECHNIQUE: Standard CT imaging of the abdomen and pelvis was obtained with intravenous contrast . Delayed images are obtained through the kidneys. Coronal and sagittal reformations are provided. Comparison: 11/25/17. FINDINGS: Small cyst again seen in the liver. The gallbladder appears normal without calcified stones. The common bile duct is not overly dilated. The pancreas, spleen and adrenal glands appear normal. Several small hypodense lesions in the kidneys not well characterized, but likely cysts. The kidneys are otherwise unremarkable. No small bowel dilatation. The colon is unremarkable. The appendix is normal. No free fluid or adenopathy. Atherosclerotic disease in the aorta without aneurysm. The bones are unremarkable. IMPRESSION: NEGATIVE CT FOR ACUTE ABNORMALITY IN THE ABDOMEN OR PELVIS. JOB NUMBER: [id number] [facility]
[2018-02-03] MEDS ORDERED: POTASSIUM CHLORIDE 20 MEQ TABLET PO ONE (09:21)
[2018-02-03] MEDS ORDERED: PANTOPRAZOLE SODIUM IV 40 MG VIAL IV SCH (10:00)
--- NOTE | 2018-02-03 10:47 | History & Physical ---
History of Present Illness - Date of Service Date of Service for History & Physical: 02/03/18 - History of Present Illness Admitting Diagnosis: vomiting, diarrhea, abdominal pain History of Present Illness: 67 year old female presented to ED with complaints of nausea, vomiting, abdominal pain and diarrhea that started Saturday night. Patient was recently admitted to [facility] on 11/[address] scan on 11/25/17 indicated colitis of the distal transverse, descending and sigmoid colon with an ileus. The patient had bloody diarrhea and was treated with cipro and flagyl that admission, instructed to follow-up with PCP. Patient was offered GI but opted to get GI referral from PCP but has not yet been established with anyone. Her current symptoms started 3am on Saturday morning with a normal bowel movement , followed by diarrhea, nausea, vomiting, and abdominal pain. Patient denies blood in her stool or vomit this time. ED Course: Afebrile, tachycardica 100s. Labs: WBC 10, Hgb 14, lactic acid 3.4 (repeat 1.9), CT abdomen normal without acute process Received fluids and zofran. PCP: Tyrese 02/03/18: Patient A&O x 4, sitting on edge of bed. Patient in no distress, has been tolerating clear liquids up to this point. Patient denies having any nausea, vomiting, diarrhea, or abdominal pain since leaving the ED. Stool cultures have not yet been able to have been obtained. Dr. Lockett was consulted, and saw patient today. He recommends patient be seen outpatient and to schedule an EGD/colonoscopy with him. Patient agreeable to plan. Will advance diet slowly, if tolerating patient to dc home and follow with PCP. Travel Screening - Travel/Exposure Within Last 30 Days Have you traveled within the last 30 days?: No - Travel/Exposure Within Last Year Have you traveled outside the [place] in the last year?: No - Additonal Travel Details Have you been exposed to anyone with a communicable illness?: No - Travel Symptoms Symptom Screening: Diarrhea, Vomiting Review of Systems Constitutional: Reports: Malaise. Denies: Chills, Fever, Weakness Eyes: Denies: Eye discharge ENT: Denies: Congestion Respiratory: Denies: Cough, Dyspnea, Hemoptysis Cardiovascular: Denies: Chest pain, Dyspnea on exertion, Edema, Palpitations, Syncope Endocrine: Reports: Fatigue Gastrointestinal: Reports: Abdominal pain, Diarrhea, Nausea, Vomiting. Denies: Constipation, Hematemesis, Hematochezia, Melena Genitourinary: Denies: Dysuria, Urgency Musculoskeletal: Denies: Arthralgia, Back pain, Myalgia Skin: Denies: Bruising, Change in color, Rash Psychiatric: Denies: Anxiety Hematological/Lymphatic: Denies: Blood Clots, Easy bleeding, Easy bruising, Swollen glands Past Medical History - SOCIAL HISTORY Smoking Status: Never smoker Drug Use: None - RESPIRATORY Hx Respiratory Disorders: No - CARDIOVASCULAR Hx Cardio Disorders: Yes Hx Hypertension: Yes - NEURO Hx Neuro Disorders: No - GI Hx GI Disorders: No Hx Nausea/Vomiting: Yes (2016) - Hx Genitourinary Disorders: No - ENDOCRINE Hx Endocrine Disorders: No - MUSCULOSKELETAL Hx Musculoskeletal Disorders: No - PSYCH Hx Psych Problems: No - HEMATOLOGY/ONCOLOGY Hx Hematology/Oncology Disorders: No Family Medical History Hx Cancer: Brother/Sister *Cancer Comment: sister-breast H&P Meds/Allergies - Allergies Allergies: Allergies Allergy/AdvReac Type Severity Reaction Status Date / Time No Known Drug Allergies Allergy Verified 02/02/18 10:25 - Home Medications Home Medications Medication Instructions Recorded Confirmed Last Taken Potassium Chloride [Klor-Con] 20 meq PO DAILY 02/02/18 02/02/18 02/01/18 Previous Rx's Medication Instructions Recorded Ondansetron HCl [Zofran] 4 mg PO Q6HR PRN #20 tablet 11/29/17 - Active Medications Active Medications: Current Medications Acetaminophen (Tylenol 500mg Tab) 1,000 mg PO Q6H PRN PRN Reason: PAIN - MILD(1-4)/FEVER Last Admin: 02/03/18 06:54 Dose: 1,000 mg Sodium Chloride () 1,000 mls @ 125 mls/hr IV .Q8H PRN PRN Reason: LARGE VOLUME IV Last Admin: 02/03/18 03:15 Dose: 125 mls/hr Morphine Sulfate (Morphine Sulfate) 2.5 mg IVP Q4H PRN PRN Reason: PAIN - MOD TO SEVERE (5-10) Ondansetron HCl (Zofran) 4 mg IVP Q4H PRN PRN Reason: NAUSEA Pantoprazole Sodium (Protonix Iv) 40 mg IV DAILY [facility] Last Admin: 02/03/18 09:04 Dose: 40 mg Physical Exam - Vital Signs Vital Signs: Vital Signs - Last 24 Hrs Temp Pulse Resp BP BP Pulse Ox 02/03/18 06:00 98.1 F 67 16 119/69 98 02/02/18 22:00 97.9 F 63 16 122/63 97 02/02/18 21:00 72 18 02/02/18 18:01 99.7 F H 72 18 110/67 95 02/02/18 16:01 98.5 F 90 16 97/76 96 02/02/18 15:07 98.4 F 88 17 84/48 97 02/02/18 13:10 98.5 F 101 H 20 98/60 97 02/02/18 11:04 87 18 134/70 99 - General General Appearance: Alert, Oriented x3, Cooperative, No acute distress Limitations: No limitations - Head Head exam: Atraumatic, Normocephalic, Normal inspection - Eye Eye exam: Normal appearance. negative: Conjunctival injection, Scleral icterus - ENT ENT exam: Normal exam, Mucous membranes moist Ear exam: Normal external inspection Nasal Exam: Normal inspection Mouth exam: Normal external inspection - Neck Neck exam: Normal inspection, Full ROM. negative: Tenderness - Respiratory Respiratory exam: Normal lung sounds bilaterally. negative: Respiratory distress - Cardiovascular Cardiovascular Exam: Regular rate, Normal rhythm, Normal heart sounds - GI/Abdominal GI/Abdominal exam: Soft, Tenderness (diffusely tender but soft at this time, bowel sounds present, not firm). negative: Distended, Guarding - Rectal Rectal exam: Deferred - exam: Deferred - Extremities Extremities exam: Normal inspection. negative: Pedal edema - Back Back exam: Denies: CVA tenderness (R), CVA tenderness (L) - Neurological Neurological exam: Alert, Normal gait, Oriented X3 - Psychiatric Psychiatric exam: Normal affect, Normal mood - Skin Skin exam: Dry, Intact, Normal color, Warm Results - Labs Result Diagrams: 02/03/18 06:28 02/03/18 06:28 Labs Last 24 Hours: Laboratory Results - last 24 hr 02/02/18 02/02/18 02/03/18 10:20 13:15 06:28 WBC 7.3 RBC 3.87 Hgb 11.2 L Hct 36.2 MCV 93.5 MCH 28.9 MCHC 30.9 L RDW 14.9 H Plt Count 214 MPV 9.6 Gran % 60.7 Lymphocytes % 29.4 Monocytes % 8.3 Eosinophils % 1.5 Basophils % 0.1 Sodium Potassium Chloride Carbon Dioxide Anion Gap BUN Creatinine Estimated GFR Random Glucose Lactic Acid 1.9 Calcium Total Bilirubin AST ALT Alkaline Phosphatase Total Protein Albumin Globulin Albumin/Globulin Ratio Stool Occult Blood Cancelled 02/03/18 06:28 WBC RBC Hgb Hct MCV MCH MCHC RDW Plt Count MPV Gran % Lymphocytes % Monocytes % Eosinophils % Basophils % Sodium 143 Potassium 3.2 L Chloride 110 H Carbon Dioxide 22.0 Anion Gap 11.0 BUN 9 Creatinine 0.6 Estimated GFR > 60 Random Glucose 84 Lactic Acid Calcium 8.1 L Total Bilirubin 0.60 AST 19 ALT 14 Alkaline Phosphatase 55 Total Protein 5.5 L Albumin 3.4 L Globulin 2.1 Albumin/Globulin Ratio 1.6 Stool Occult Blood VTE H&P Assessment - Risk for VTE Risk for VTE: No Risk Level: Low Risk Assessment Date: 02/03/18 Risk Assessment Time: 10:52 VTE Orders Placed or Will Be Placed: No VTE Reason for No Prophylaxis: Not Indicated Plan - Inpatient Certification Inpatient Certification: Admit to inpatient care: Based on my medical assessment, after consideration of patient's risk factors (age, co-morbidities and patient presenting symptoms and acuity), I expect that this patient will remain in the hospital greater than or equal to two midnights and that the services needed warrant inpatient care because: Patient Risk Factors: [dehydration, age, hospitalization] Estimated length of stay: [24-48 hours] The patient may reasonably be expected to be discharged or transferred to a hospital within 96 hours after admission to [facility]. Services needed: [iv hydration, electrolyte replacement, GI consult] Post hospital care (if known): [] I certify that my determination is in accordance with my understanding of Medicare requirements for reasonable and necessary inpatient services. 02/03/18 10:53 - Detailed Diagnosis and Plan (1) Nausea & vomiting Current Visit: Yes Status: Acute Qualifiers: Vomiting type: unspecified Vomiting Intractability: unspecified Qualified Code(s): R11.2 - Nausea with vomiting, unspecified Base Code: R11.2 - NAUSEA WITH VOMITING, UNSPECIFIED Comment: 02/03/18: Patient presents with intractable nausea and vomiting that started 24 hours prior. Recent admission 11/25 for colitis, treated with Cipro and Flagyl, has not followed up with GI for that admission. CT this admission shows no acute process, WBC 10.9, lactic 1.9. -IV fluids NS @125ml/hr -Zofran prn - Advance diet as tolerated to a bland diet -GI consult (Dr. Lockett) (2) Hypokalemia Current Visit: No Status: Acute Base Code: E87.6 - HYPOKALEMIA Comment: 02/03/18: Potassium 3.2 this morning. -PO Potassium replacement ordered -Likely no need to further monitor as patient is advancing diet and no longer vomiting. (3) VTE (venous thromboembolism) Current Visit: No Status: Acute Base Code: I82.90 - ACUTE EMBOLISM AND THROMBOSIS OF UNSPECIFIED VEIN Comment: 02/03/18: Patient not receiving VTE prophylaxis at this time. Patient low risk, ambulating in room to bathroom. (4) Full code status Current Visit: No Status: Acute Base Code: Z78.9 - OTHER SPECIFIED HEALTH STATUS Comment: 02/03/18: Patient full code status this admission.
--- NOTE | 2018-02-03 11:05 | Discharge Summary ---
Providers Discharge Summary Date: 02/03/18 Date of admission: 02/02/18 15:57 Expected Date of Discharge: 02/03/18 Attending physician: DILCIA CUMMINGS Primary care physician: CRISTIAN CABA D.O. Consults: Consult Orders 02/02/18 17:08 Consult NOW Consulting Provider: JEAN DURAN Physician Instructions: Reason For Exam: Ulcerative colitis with 2 admissions in 2 months Physical Exam - Vital Signs Vital Signs: Vital Signs - Last 24 Hrs Temp Pulse Resp BP BP Pulse Ox 02/03/18 06:00 98.1 F 67 16 119/69 98 02/02/18 22:00 97.9 F 63 16 122/63 97 02/02/18 21:00 72 18 02/02/18 18:01 99.7 F H 72 18 110/67 95 02/02/18 16:01 98.5 F 90 16 97/76 96 02/02/18 15:07 98.4 F 88 17 84/48 97 02/02/18 13:10 98.5 F 101 H 20 98/60 97 02/02/18 11:04 87 18 134/70 99 - General General Appearance: Alert, Oriented x3, Cooperative, No acute distress Limitations: No limitations - Head Head exam: Atraumatic, Normocephalic, Normal inspection - Eye Eye exam: Normal appearance. negative: Conjunctival injection, Scleral icterus - ENT ENT exam: Normal exam, Mucous membranes moist Ear exam: Normal external inspection Nasal Exam: Normal inspection Mouth exam: Normal external inspection - Neck Neck exam: Normal inspection, Full ROM. negative: Tenderness - Respiratory Respiratory exam: Normal lung sounds bilaterally. negative: Respiratory distress - Cardiovascular Cardiovascular Exam: Regular rate, Normal rhythm, Normal heart sounds - GI/Abdominal GI/Abdominal exam: Soft, Tenderness (diffusely tender but soft at this time, bowel sounds present, not firm). negative: Distended, Guarding - Rectal Rectal exam: Deferred - exam: Deferred - Extremities Extremities exam: Normal inspection. negative: Pedal edema - Back Back exam: Denies: CVA tenderness (R), CVA tenderness (L) - Neurological Neurological exam: Alert, Normal gait, Oriented X3 - Psychiatric Psychiatric exam: Normal affect, Normal mood - Skin Skin exam: Dry, Intact, Normal color, Warm Hospitalization - Hospitalization Admission Diagnosis: vomiting, diarrhea, abdominal pain - Problem List/Discharge Diagnosis (1) Nausea & vomiting Current Visit: Yes Status: Acute Discharge Diagnosis: Vomiting type: unspecified Vomiting Intractability: unspecified Qualified Code(s): R11.2 - Nausea with vomiting, unspecified Base Code: R11.2 - NAUSEA WITH VOMITING, UNSPECIFIED Comment: 02/03/18: Patient presents with intractable nausea and vomiting that started 24 hours prior. Recent admission 11/25 for colitis, treated with Cipro and Flagyl, has not followed up with GI for that admission. CT this admission shows no acute process, WBC 7.3. -Tolerating PO intake -Zofran prn - Advance diet as tolerated to a bland diet -GI consult (Dr. Duran)- will setup patient for outpatient EGD/Colonoscopy (2) Hypokalemia Current Visit: No Status: Acute Base Code: E87.6 - HYPOKALEMIA Comment: 02/03/18: Potassium 3.2 this morning. -PO Potassium replacement ordered -Likely no need to further monitor as patient is advancing diet and no longer vomiting. (3) VTE (venous thromboembolism) Current Visit: No Status: Acute Base Code: I82.90 - ACUTE EMBOLISM AND THROMBOSIS OF UNSPECIFIED VEIN Comment: 02/03/18: Patient not receiving VTE prophylaxis at this time. Patient low risk, ambulating in room to bathroom. (4) Full code status Current Visit: No Status: Acute Base Code: Z78.9 - OTHER SPECIFIED HEALTH STATUS Comment: 02/03/18: Patient full code status this admission. - Hospitalization Course Disposition: Home, Self-Care Hospital Course: 67 year old female presented to ED with complaints of nausea, vomiting, abdominal pain and diarrhea that started Saturday night. Patient was recently admitted to [facility] on 11/[address] scan on 11/25/17 indicated colitis of the distal transverse, descending and sigmoid colon with an ileus. The patient had bloody diarrhea and was treated with cipro and flagyl that admission, instructed to follow-up with PCP. Patient was offered GI but opted to get GI referral from PCP but has not yet been established with anyone. Her current symptoms started 3am on Saturday morning with a normal bowel movement , followed by diarrhea, nausea, vomiting, and abdominal pain. Patient denies blood in her stool or vomit this time. ED Course: Afebrile, tachycardica 100s. Labs: WBC 10, Hgb 14, lactic acid 3.4 (repeat 1.9), CT abdomen normal without acute process Received fluids and zofran. PCP: Tyrese 02/03/18: Patient A&O x 4, sitting on edge of bed. Patient in no distress, has been tolerating clear liquids up to this point. Patient denies having any nausea, vomiting, diarrhea, or abdominal pain since leaving the ED. Stool cultures have not yet been able to have been obtained. Dr. Duran was consulted, and saw patient today. He recommends patient be seen outpatient and to schedule an EGD/colonoscopy with him. Patient agreeable to plan. Will advance diet slowly, if tolerating patient to dc home and follow with PCP. Update: Patient tolerating PO intake. Has not required pain medication or antiemetics since admission. VS stable. Will dc home, advance diet slowly, follow-up with PCP and schedule EGD/colonoscopy with Dr. Duran outpatient. Procedures: Imaging and X-Rays 02/02/18 09:55 ABDOMEN/PELVIS W CONTRAST [CT] Stat Cardiology Procedures 02/02/18 09:26 Coding Team Lead NOW Abnormal Labs: Abnormal Lab Results 02/02/18 02/02/18 02/02/18 Range/Units 09:30 09:30 09:30 Hgb (11.6-16.0) gm/dl MCHC (32-36) g/dl RDW 14.7 H (11.5-14.5) % Neutrophils % 90.0 H (47-80) % Lymphocytes 6.0 L (16-45) % APTT 23.5 L (24.5-39.1) SECONDS Potassium (3.4-4.5) mmol/L Chloride (98-107) mmol/L Anion Gap 19.0 H (7-16) Random Glucose 191 H (74-109) mg/dL Lactic Acid (0.5-2.2) mmol/L Calcium (8.8-10.2) mg/dL Total Protein (6.6-8.7) g/dL Albumin (4.0-5.0) g/dL Urine Ketones (NEGATIVE) 02/02/18 02/02/18 02/03/18 Range/Units 09:30 10:20 06:28 Hgb 11.2 L (11.6-16.0) gm/dl MCHC 30.9 L (32-36) g/dl RDW 14.9 H (11.5-14.5) % Neutrophils % (47-80) % Lymphocytes (16-45) % APTT (24.5-39.1) SECONDS Potassium (3.4-4.5) mmol/L Chloride (98-107) mmol/L Anion Gap (7-16) Random Glucose (74-109) mg/dL Lactic Acid 3.4 H (0.5-2.2) mmol/L Calcium (8.8-10.2) mg/dL Total Protein (6.6-8.7) g/dL Albumin (4.0-5.0) g/dL Urine Ketones 40 mg/dl H (NEGATIVE) 02/03/18 Range/Units 06:28 Hgb (11.6-16.0) gm/dl MCHC (32-36) g/dl RDW (11.5-14.5) % Neutrophils % (47-80) % Lymphocytes (16-45) % APTT (24.5-39.1) SECONDS Potassium 3.2 L (3.4-4.5) mmol/L Chloride 110 H (98-107) mmol/L Anion Gap (7-16) Random Glucose (74-109) mg/dL Lactic Acid (0.5-2.2) mmol/L Calcium 8.1 L (8.8-10.2) mg/dL Total Protein 5.5 L (6.6-8.7) g/dL Albumin 3.4 L (4.0-5.0) g/dL Urine Ketones (NEGATIVE) Condition at Discharge: (2) Stable VTE Discharge VTE Reason For No Overlap Therapy: Not Indicated Discharge Medications - Discharge Medications Home Medications: Ambulatory Orders Hydrochlorothiazide [Hctz] 50 mg PO DAILY 11/26/17 [Last Taken 02/01/18] Ondansetron HCl [Zofran] 4 mg PO Q6HR PRN #20 tablet 11/29/17 [Last Taken ] Potassium Chloride [Klor-Con] 20 meq PO DAILY 02/02/18 [Last Taken 02/01/18] Discharge Plan - Discharge Instructions Activity at Discharge: Increase Activity as Tolerated Diet at Discharge: Advance to Usual Diet Additional Instructions: Advance diet slowly as tolerated We gave you potassium today, start your home potassium supplement tomorrow. Follow-up with Dr. Caba in [address] Duran's office in [place] to schedule EGD/Colonscopy Quality Measures - Quality Measures Quality Measures: Advance Directives, Documentation of Current Medications in Medical Record, Elder Maltreatment Screen and Follow-Up Plan, Screening for High Blood Pressure and F/U Documented - Current Medications Quality Measure: Measure #130: Documentation of Current Medications Documentation of Current Medications: <Current Medications Documented/Reviewed> [G8427] - Blood Pressure Screening Quality Measure: Screening for High Blood Pressure and Follow-Up Documented Does Patient Have Any of the Following: Active Dx of HTN Blood Pressure Classification: Normal BP Reading Systolic Measurement: 119 Diastolic Measurement: 69 Screening for High Blood Pressure: Patient Exclusion, Hx of HTN [G9744] - Advance Directives Quality Measure: Measure #47: Care Plan Advance Directives Established: No Advance Directives Information Provided To Patient: Declined Advance Directives on File: No Living Will: No Power of Developmental Writing Instructor: No Advance Care Planning: Not Discussed or Documented [[id number]] - Elder Abuse Suspicion Index Screening: Elder Abuse Suspicion Index Screening Screening Result: Negative result EASI Reference Information: Brian BYNUM, Gadiel C, Mee D, Milka M.Development and validation of a tool to assist physicians identification of elder abuse: The Elder Abuse Suspicion Index (EASI ). Journal of Elder Abuse and Neglect, 2008; 20 (3): 276-300. - Elder Maltreatment Screen Quality Measures: Elder Maltreatment Screen and Follow-Up Plan Elder Maltreatment Screen: <Negative, No Follow-Up Plan Required> [G8734]
--- NOTE | 2018-02-03 12:40 | Medical Records Consult ---
DATE OF CONSULTATION: 02/03/2018 REASON FOR CONSULTATION: Abdominal pain with nausea, vomiting, and diarrhea. HISTORY OF PRESENT ILLNESS: The patient is a very pleasant 67-year-old female seen today for the first time for evaluation of nausea, vomiting, and diarrhea. She has had previous admissions for the same and, in fact, in October of this year was admitted to the hospital with a nonspecific colitis involving the distal transverse and descending colon noted on CT scan with an associated ileus. Her pain generally occurs acutely and at this time woke her up from sleep at 3 in the morning. The pain was severe doubling her up and was followed by nausea, vomiting, and then diarrhea. The symptoms lasted for approximately a day and then last evening seemed to be completely resolve. She has had no further nausea, vomiting, or diarrhea overnight. She had 2 prior episodes of similar circumstances with abdominal pain followed by nausea, vomiting, and diarrhea. The last episode, as mentioned, did also demonstrate changes on CT scan involving the distal transverse and descending colon with colitis noted. She also had bloody diarrhea at that time but none at this admission. She states that she generally has regular stools each morning. She denies any regular nausea or vomiting. She admits to infrequent heartburn. She denies previous upper GI or lower GI x-ray. She denies previous endoscopy. Laboratory at this time is unremarkable. PAST MEDICAL HISTORY: Hypertension. PAST SURGICAL HISTORY: Her only previous surgeries include hysterectomy, tonsillectomy, and knee arthroscopy. SOCIAL HISTORY: She denies alcohol consumption. She quit tobacco consumption 4 years ago. She works at home and has no exposure to chemicals. FAMILY HISTORY: Significant in that her sister suffers with diverticulitis. She has a nephew who suffers with celiac disease. REVIEW OF SYSTEMS: Completed and failed to demonstrate any other changes for HEENT, respiratory, cardiovascular, , or neurologic problems. PHYSICAL EXAMINATION: GENERAL: She is alert and oriented. NECK: Supple. HEART: Regular. LUNGS: Clear. ABDOMEN: Soft with no tenderness. EXTREMITIES: Free from edema. NEUROMUSCULAR: Examination is grossly unremarkable. LABORATORY DATA: Normal CBC and CMP. Her lactate was slightly elevated initially at 3.4 but this dropped to 1.9 on a second check. CT scan of the abdomen on this admission was reportedly normal but on last admission, as mentioned, demonstrated colitis involving the distal transverse colon and descending colon. IMPRESSION: This patient has had recurrent episodes of severe abdominal pain followed by nausea, vomiting, and diarrhea with one episode of bleeding as well with her last admission. She was treated with Flagyl and Cipro and after 5 days was discharged to home. I question whether this could be related to ischemic colitis with recurrence. At this time she feels back to normal. RECOMMENDATIONS: My recommendations are that she start on clear liquids and advance her diet as tolerated. She will be arranged for an outpatient upper and lower endoscopy and if negative, consider a CT angiography to further evaluate the mesenteric vasculature. Further recommendations may be forthcoming pending her progress. Thank you for allowing me to participate in her care. CC: MD Dr. Graeme Karimi
== END 2018-02-03 14:07 | disposition home or self-care (01) ==
LOC: ER 09:09 → INTOOBSV 15:57 → MEDSURG 15:57
PROVIDERS: ADMIT Internal Medicine; ATTEND Internal Medicine
DX: R19.7 Diarrhea, unspecified (principal); E87.6 Hypokalemia; I10 Essential (primary) hypertension; Z86.19 Personal history of other infectious and parasitic diseases; Z87.891 Personal history of nicotine dependence
CPT/HCPCS: 83605; 83690; 85025; 85730; 85610; 80053 ×2; 81003; 85027; 74177; G0378 ×2; Q9967; J2405; J2270; 96365; 96374; 96375; 96376; 99220; 99285; C9113; J2550; J7030

== ENCOUNTER 2018-03-18 09:06 | Inpatient (IN) | payer MEDICARE ==
[2018-03-18] MEDS ORDERED: 0.9 % SODIUM CHLORIDE 1000ML 1,000 ML IV PRN (09:36)
[2018-03-18] MEDS ORDERED: PROMETHAZINE HCL 25 MG/ML VIAL IM ONE (09:36)
[2018-03-18] MEDS ORDERED: 0.9 % SODIUM CHLORIDE 1,000 ML BAG IV ONE (09:36)
[2018-03-18 09:47] LABS: MEAN CELL VOLUME 88.7 fl (81-97); MEAN CORPUSCULAR HEMOGLOBIN 30.2 pg (27-33); PLATELET COUNT 283 K/uL (130-400); RED CELL DISTRIBUTION WIDTH 14.8 % (11.5-14.5); WHITE BLOOD COUNT W/O DIFF 18.7 K/uL (4.2-12.2)
[2018-03-18 09:56] LABS: BLOOD UREA NITROGEN 29 mg/dL (8-23)
[2018-03-18 09:57] LABS: CREATININE 0.7 mg/dL (0.5-0.9); EST GLOMERULAR FILTRATION RATE > 60 mL/min; TOTAL PROTEIN 7.6 g/dL (6.6-8.7)
--- NOTE | 2018-03-18 09:57 | Emergency Department Record ---
History of Present Illness - General Chief complaint: Vomiting Stated complaint: VOMITING Time Seen by Provider: 03/18/18 09:24 Source: Patient Mode of Arrival: Ambulatory Limitations: No limitations - History of Present Illness MD complaint: Abdominal pain, Diarrhea, Nausea Onset/Timin -: Hour(s) Description of Vomiting: Bilious Associated Abdominal Pain: Yes Location: Diffuse, Epigastric Radiation: None Severity: Severe Severity scale (1-10): 10 Quality: Aching Consistency: Constant Improves with: None Worsens with: None Associated Symptoms: Nausea/vomiting - Related Data Previous Rx's Medication Instructions Recorded Ondansetron HCl [Zofran] 4 mg PO Q6HR PRN #20 tablet 11/29/17 Allergies Allergy/AdvReac Type Severity Reaction Status Date / Time No Known Drug Allergies Allergy Verified 03/18/18 09:15 Travel Screening - Travel/Exposure Within Last 30 Days Have you traveled within the last 30 days?: No Review of Systems Constitutional: Denies: Chills, Fever, Weakness Eyes: Denies: Photophobia, Vision change ENT: Denies: Congestion Respiratory: Denies: Cough, Wheezes Cardiovascular: Denies: Arrhythmia, Chest pain Endocrine: Denies: Fatigue Gastrointestinal: Reports: As per HPI, Abdominal pain, Diarrhea, Nausea, Vomiting. Denies: Hematemesis, Hematochezia Genitourinary: Denies: Abnormal menses Musculoskeletal: Denies: Arthralgia, Back pain Skin: Denies: Bruising Neurological: Denies: Abnormal gait, Tingling Psychiatric: Reports: Anxiety. Denies: Suicidal thoughts Hematological/Lymphatic: Denies: Anemia Past Medical History - SOCIAL HISTORY Smoking Status: Never smoker Alcohol Use: None Drug Use: None - RESPIRATORY Hx Respiratory Disorders: Yes - CARDIOVASCULAR Hx Cardio Disorders: Yes Hx Hypertension: Yes - NEURO Hx Neuro Disorders: No - GI Hx GI Disorders: Yes Hx Nausea/Vomiting: Yes (2016) - Hx Genitourinary Disorders: No - ENDOCRINE Hx Endocrine Disorders: No Hx Diabetes: No Hx Thyroid Disease: No - MUSCULOSKELETAL Hx Musculoskeletal Disorders: Yes Hx Arthritis: Yes - PSYCH Hx Psych Problems: No - HEMATOLOGY/ONCOLOGY Hx Hematology/Oncology Disorders: No Family Medical History Any Significant Family History?: Yes Hx Cancer: Brother/Sister *Cancer Comment: sister-breast Physical Exam - General General Appearance: Alert, Oriented x3, Moderate distress, Anxious Limitations: No limitations - Head Head exam: Atraumatic - Eye Eye exam: Normal appearance - ENT ENT exam: Mucous membranes moist, Normal external ear exam, Normal orophraynx, TM's normal bilaterally - Neck Neck exam: Normal inspection - Respiratory Respiratory exam: Normal lung sounds bilaterally. negative: Rhonchi, Wheezes - Cardiovascular Cardiovascular Exam: Regular rate, Normal rhythm - GI/Abdominal GI/Abdominal exam: Soft, Normal bowel sounds, Tenderness. negative: Guarding, Organomegaly, Pulsatile mass, Rebound - exam: Deferred - Extremities Extremities exam: Normal inspection - Back Back exam: Reports: Normal inspection. Denies: Paraspinal tenderness - Neurological Neurological exam: Alert, Normal gait, Oriented X3 - Psychiatric Psychiatric exam: Anxious. negative: Depressed - Skin Skin exam: Normal color. negative: Rash Course Vital Signs 03/18/18 09:12 Temperature 97.9 F Pulse Rate 108 H Respiratory 20 Rate Blood Pressure 124/95 Pulse Ox 99 - Reevaluation(s) Reevaluation #1: 03/18/18 10:48 Phergan given. XR abd "normal". Labs pending. +BM in ED stool sent to lab. Resting on recheck without retching. States "no better". After leaving room pt is again retching. Has epigastric discomfort. Pepcid and Reglan ordered. Reevaluation #2: 03/18/18 11:54 Pt with low K and high WBC. XR neg. Discussed with Dr. Dorsey and will admit. Medical Decision Making - Management Options MDM Management: Additional Work-up Planned (e.g. ADM/Transfer/OP Study) - Data Complexity MDM Data: Labs Ordered and/or Reviewed, X-Ray Ordered and/or Reviewed - Lab Data Result diagrams: 03/18/18 09:25 03/18/18 09:41 Lab Results 03/18/18 Range/Units 09:25 WBC 18.7 H (4.2-12.2) K/uL RBC 5.30 (3.80-5.40) M/uL Hgb 16.0 (11.6-16.0) gm/dl Hct 47.0 (35.0-47.0) % MCV 88.7 (81-97) fl MCH 30.2 (27-33) pg MCHC 34.0 (32-36) g/dl RDW 14.8 H (11.5-14.5) % Plt Count 283 (130-400) K/uL MPV 11.0 H (7.4-10.4) fl Eosinophils % Not Reportable Basophils % Not Reportable Disposition Disposition: Admit Clinical Impression: Emesis, persistent, Abdominal pain, Hypokalemia, Nausea & vomiting, Diarrhea Disposition: Still a Patient at [facility] Decision to Admit: Admit from ER Decision to Admit Date: 03/18/18 Decision to Admit Time: 11:56 Accepting Physician: Dr. Dorsey Condition: (3) Guarded Forms: Patient Portal Access Quality - Quality Measures Quality Measures: N/A - Blood Pressure Screening Does Patient Have Any of the Following: No Blood Pressure Classification: Hypertensive Reading Systolic Measurement: 124 Diastolic Measurement: 95 Screening for High Blood Pressure: < First Hypertensive BP, F/U Documented > [ [id number]] First Hypertensive Follow-up Interventions: Follow-up with rescreen GT 1 day and LT 4 weeks.
[2018-03-18 09:59] LABS: GLUCOSE,RANDOM 192 mg/dL (74-109)
[2018-03-18 10:02] LABS: ALB/GLOB RATIO 1.7 (1.1-1.8); ALBUMIN 4.8 g/dL (4.0-5.0); ALKALINE PHOSPHATASE 92 U/L (35-104); ALT/SGPT 16 U/L (<33); AST/SGOT 23 U/L (10.0-35.0)
[2018-03-18] MEDS ORDERED: FAMOTIDINE IV 20 MG/2 ML VIAL IVP ONE (10:47)
[2018-03-18] MEDS ORDERED: METOCLOPRAMIDE HCL 10 MG/2 ML VIAL IVP ONE (10:48)
[2018-03-18] MEDS ORDERED: POTASSIUM CHLORIDE 20 MEQ/15ML CUP PO ONE (10:51)
[2018-03-18 12:21] LABS: URINE APPEARANCE CLEAR; URINE BILIRUBIN NEGATIVE (NEGATIVE); URINE BLOOD NEGATIVE (NEGATIVE); URINE COLOR YELLOW; URINE GLUCOSE (UA) NEGATIVE (NEGATIVE); URINE KETONE NEGATIVE (NEGATIVE); URINE LEUKOCYTE ESTERASE NEGATIVE (NEGATIVE); URINE NITRITE NEGATIVE (NEGATIVE); URINE PROTEIN NEGATIVE (NEGATIVE); URINE UROBILINOGEN 0.2 E.U./dL (0.20 - 1.00)
[2018-03-18] MEDS ORDERED: PANTOPRAZOLE SODIUM IV 40 MG VIAL IV SCH (14:15)
--- NOTE | 2018-03-18 14:39 | RADIOLOGY REPORT ---
EXAM: ACUTE ABDOMEN SERIES HISTORY: ABDOMINAL PAIN. TECHNIQUE: A single PA view of the chest and supine and upright views of the abdomen were performed. FINDINGS: The heart size is normal. The lungs are hyperinflated. No infiltrate or pleural effusion. Nonobstructive bowel gas pattern. No evidence of free air. Mild degenerative change of the thoracolumbar spine. IMPRESSION: NEGATIVE ACUTE ABDOMINAL SERIES. JOB NUMBER: [id number] MTDD
[2018-03-18 14:57] LABS: BLOOD UREA NITROGEN 21 mg/dL (8-23); CREATININE 0.7 mg/dL (0.5-0.9); EST GLOMERULAR FILTRATION RATE > 60 mL/min; GLUCOSE,RANDOM 184 mg/dL (74-109)
[2018-03-18] MEDS ORDERED: SOD CHLOR 0.9% WITH KCL 40MEQ 40 MEQ/1,000 ML IV.SOLN IV ONE (15:21)
[2018-03-18] MEDS ORDERED: MORPHINE SULFATE 10 MG/ML VIAL IVP ONE (15:30)
[2018-03-18] MEDS ORDERED: ONDANSETRON HCL IV 4 MG/2 ML VIAL IVP PRN (15:30)
[2018-03-18] MEDS: ACETAMINOPHEN 1,000 MG/100 ML BTL IV SCH ×2 (15:33→20:36)
[2018-03-18] MEDS ORDERED: METOCLOPRAMIDE HCL 10 MG/2 ML VIAL IVP PRN (17:11)
[2018-03-18] MEDS ORDERED: MORPHINE SULFATE 10 MG/ML VIAL IVP PRN (17:41)
--- NOTE | 2018-03-18 17:51 | History & Physical ---
History of Present Illness - Date of Service Date of Service for History & Physical: 03/18/18 - History of Present Illness Admitting Diagnosis: Abd pain with vomiting and diarrhea History of Present Illness: Pt here 2/2 to nausea, vomiting, and diarrhea that started at 3AM this morning. She states she spontaneously started to have abdominal cramps and soon after had the previously mentioned symptoms along with intense abdominal pain which is described as burning. She denies any new food, medications, or trigger for this to happen. She has come in for similar symptoms in the past and has been seen by GI who wanted to do endoscopy for further evaluation. Her appointment with GI is not until March. Currently she denies any blood in the vomit and states that nothing is really coming up anymore. She said her last BM in the ED did have some bright red blood but otherwise has been brown. Her PCP did put her on nexium but per pt it was never given a refill and hasn't been back on it since it ran out. She is unsure if it helped. She only takes HTN medication currently. Her states that she has come to the ER for the exact same issue 4 times in the last year. She has not been able to tolerate a normal diet since her last admission and has only been eating soft foods such as jello and apple sauce. Travel Screening - Travel/Exposure Within Last 30 Days Have you traveled within the last 30 days?: No - Travel/Exposure Within Last Year Have you traveled outside the [place] in the last year?: No - Additonal Travel Details Have you been exposed to anyone with a communicable illness?: No - Travel Symptoms Symptom Screening: None Review of Systems Constitutional: Denies: Chills, Fever, Weakness Eyes: Denies: Photophobia, Vision change ENT: Denies: Congestion Respiratory: Denies: Cough, Dyspnea, Wheezes Cardiovascular: Denies: Arrhythmia, Chest pain, Dyspnea on exertion, Edema, Murmurs Gastrointestinal: Reports: As per HPI, Abdominal pain, Diarrhea, Nausea, Vomiting. Denies: Hematemesis, Hematochezia, Melena Genitourinary: Denies: Dysuria, Frequency, Urgency Musculoskeletal: Reports: Arthralgia, Back pain Skin: Denies: Bruising Neurological: Denies: Abnormal gait, Tingling Psychiatric: Reports: Anxiety. Denies: Suicidal thoughts Hematological/Lymphatic: Denies: Anemia Past Medical History - SOCIAL HISTORY Smoking Status: Never smoker Alcohol Use: None Drug Use: None - RESPIRATORY Hx Respiratory Disorders: Yes - CARDIOVASCULAR Hx Cardio Disorders: Yes Hx Hypertension: Yes - NEURO Hx Neuro Disorders: No - GI Hx GI Disorders: Yes Hx Nausea/Vomiting: Yes (2016) - Hx Genitourinary Disorders: No - ENDOCRINE Hx Endocrine Disorders: No Hx Diabetes: No Hx Thyroid Disease: No - MUSCULOSKELETAL Hx Musculoskeletal Disorders: Yes Hx Arthritis: Yes - PSYCH Hx Psych Problems: No - HEMATOLOGY/ONCOLOGY Hx Hematology/Oncology Disorders: No Family Medical History Any Significant Family History?: Yes Hx Cancer: Brother/Sister *Cancer Comment: sister-breast H&P Meds/Allergies - Allergies Allergies: Allergies Allergy/AdvReac Type Severity Reaction Status Date / Time No Known Drug Allergies Allergy Verified 03/18/18 09:15 - Home Medications Previous Rx's Medication Instructions Recorded Ondansetron HCl [Zofran] 4 mg PO Q6HR PRN #20 tablet 11/29/17 - Active Medications Active Medications: Current Medications Acetaminophen (Ofirmev) 1,000 mg in 100 mls @ 100 mls/hr IV Q6H [facility] Last Infusion: 03/18/18 16:40 Dose: Infused Potassium Chloride/Sodium Chloride (Potassium Chl 40meq/) 40 meq in 1,000 mls @ 150 mls/hr IV NOW ONE Stop: 03/18/18 22:00 Last Admin: 03/18/18 15:31 Dose: 150 mls/hr Metoclopramide HCl (Reglan) 10 mg IVP Q6H PRN PRN Reason: NAUSEA Morphine Sulfate (Morphine Sulfate) 4 mg IVP Q4H PRN PRN Reason: ABDOMINAL PAIN Ondansetron HCl (Zofran) 4 mg IVP Q8H PRN PRN Reason: NAUSEA Pantoprazole Sodium (Protonix Iv) 40 mg IV DAILY [facility] Last Admin: 03/18/18 14:14 Dose: 40 mg Physical Exam - Vital Signs Vital Signs: Vital Signs - Last 24 Hrs Temp Pulse Pulse Resp BP BP Pulse Ox 03/18/18 11:57 99.1 F 92 H 18 154/90 100 03/18/18 11:25 98 H 20 131/70 98 03/18/18 09:12 97.9 F 108 H 20 124/95 99 - General General Appearance: Alert, Oriented x3, Moderate distress (2/2 to retching.) Limitations: No limitations - Head Head exam: Atraumatic Head exam detail: negative: Abrasion, Contusion - Eye Eye exam: Normal appearance - ENT ENT exam: Mucous membranes dry, Normal external ear exam Ear exam: Normal external inspection Nasal Exam: Normal inspection Mouth exam: Normal external inspection Throat exam: Normal inspection - Neck Neck exam: Normal inspection - Respiratory Respiratory exam: Normal lung sounds bilaterally. negative: Accessory muscle use, Decreased breath sounds, Rhonchi, Wheezes - Cardiovascular Cardiovascular Exam: Regular rate, Normal rhythm, Normal heart sounds - GI/Abdominal GI/Abdominal exam: Soft, Normal bowel sounds, Tenderness (in the epigastric area ). negative: Guarding, Organomegaly, Pulsatile mass, Rebound - Rectal Rectal exam: Deferred - exam: Deferred - Extremities Extremities exam: Normal inspection. negative: Pedal edema, Tenderness - Neurological Neurological exam: Alert, Normal gait, Oriented X3 - Psychiatric Psychiatric exam: Anxious. negative: Depressed - Skin Skin exam: Normal color. negative: Rash Results - Labs Result Diagrams: 03/18/18 09:25 03/18/18 14:41 Labs Last 24 Hours: Laboratory Results - last 24 hr 03/18/18 03/18/18 03/18/18 09:25 09:41 09:48 WBC 18.7 H RBC 5.30 Hgb 16.0 Hct 47.0 MCV 88.7 MCH 30.2 MCHC 34.0 RDW 14.8 H Plt Count 283 MPV 11.0 H Neutrophils % 94.0 H Eosinophils % Not Reportable Basophils % Not Reportable Lymphocytes 3.0 L Monocytes 3.0 Sodium 141 Potassium 2.6 L* Chloride 97 L Carbon Dioxide 22.0 Anion Gap 22.0 H BUN 29 H Creatinine 0.7 Estimated GFR > 60 Random Glucose 192 H Calcium 10.1 Total Bilirubin 1.10 H AST 23 ALT 16 Alkaline Phosphatase 92 Total Protein 7.6 Albumin 4.8 Globulin 2.8 Albumin/Globulin Ratio 1.7 Urine Color Urine Appearance Urine pH Ur Specific [place] Urine Protein Urine Glucose (UA) Urine Ketones Urine Blood Urine Nitrite Urine Bilirubin Urine Urobilinogen Ur Leukocyte Esterase C. difficile Ag & Toxin Not detected 03/18/18 03/18/18 12:15 14:41 WBC RBC Hgb Hct MCV MCH MCHC RDW Plt Count MPV Neutrophils % Eosinophils % Basophils % Lymphocytes Monocytes Sodium 139 Potassium 2.4 L* Chloride 97 L Carbon Dioxide 22.0 Anion Gap 20.0 H BUN 21 Creatinine 0.7 Estimated GFR > 60 Random Glucose 184 H Calcium 9.0 Total Bilirubin AST ALT Alkaline Phosphatase Total Protein Albumin Globulin Albumin/Globulin Ratio Urine Color Yellow Urine Appearance Clear Urine pH 7.5 Ur Specific [place] 1.015 Urine Protein Negative Urine Glucose (UA) Negative Urine Ketones Negative Urine Blood Negative Urine Nitrite Negative Urine Bilirubin Negative Urine Urobilinogen 0.2 Ur Leukocyte Esterase Negative C. difficile Ag & Toxin VTE H&P Assessment - Risk for VTE Risk for VTE: No Risk Level: Low Risk Assessment Date: 03/18/18 Risk Assessment Time: 18:00 VTE Orders Placed or Will Be Placed: No VTE Reason for No Prophylaxis: Not Indicated (Pt is low risk) Plan - Inpatient Certification Inpatient Certification: Admit to inpatient care: Based on my medical assessment, after consideration of patient's risk factors (age, co-morbidities and patient presenting symptoms and acuity), I expect that this patient will remain in the hospital greater than or equal to two midnights and that the services needed warrant inpatient care because: Patient Risk Factors: [] Estimated length of stay: [] The patient may reasonably be expected to be discharged or transferred to a hospital within 96 hours after admission to [facility]. Services needed: [] Post hospital care (if known): [] I certify that my determination is in accordance with my understanding of Medicare requirements for reasonable and necessary inpatient services. - Detailed Diagnosis and Plan (1) Nausea vomiting and diarrhea Plan: - Zofran 4mg Q8 hours PRN - Reglan Q6 hours PRN - Liquid diet as tolerated. - Diarrhea has resolved. - Replenish lost fluids with NS with K+ @ 150ml/hr (1.5 maintenance) 03/18/18 18:08 Current Visit: Yes Status: Acute Base Code: R11.2 - NAUSEA WITH VOMITING, UNSPECIFIED; R19.7 - DIARRHEA, UNSPECIFIED (2) Epigastric abdominal pain Plan: - Likely 2/2 to chronic gastritis with acute worsening. - scheduled tylenol 1000mg Q 6 hours - Morphine 2mg Q 4 hours for breakthrough - Protonix 40mg daily Current Visit: Yes Status: Acute Base Code: R10.13 - EPIGASTRIC PAIN (3) Hypokalemia due to loss of potassium Plan: - 2/2 to vomiting and diarrhea. Only IV K+ is through 1000ml premixed fluids. Will give NS with 40Meq @ 150ml/hr and slowly increase K+ this way until she can tolerate PO intake. Current Visit: Yes Status: Acute Base Code: E87.6 - HYPOKALEMIA (4) HTN (hypertension) Plan: - Will restart oral home meds when tolerated. - if elevated BP when orals not tolerated will give hydralazine IV PRN BP > 180/ 100 Current Visit: Yes Status: Acute Qualifiers: Hypertension type: essential hypertension Qualified Code(s): I10 - Essential (primary) hypertension Base Code: I10 - ESSENTIAL (PRIMARY) HYPERTENSION - Disposition Home, once tolerating diet and vomiting/ nausea controlled.
[2018-03-18] MEDS ORDERED: HYDRALAZINE 20MG/ML VIAL IV PRN (18:04)
[2018-03-19] MEDS: ACETAMINOPHEN 1,000 MG/100 ML BTL IV SCH ×2 (03:19→08:37)
[2018-03-19 06:58] LABS: BASO % 0.1 % (0-6); EOS % 0.3 % (0-6); HEMATOCRIT 41.4 % (35.0-47.0); HEMOGLOBIN 13.8 gm/dl (11.6-16.0); LYMPH % 16.2 % (16-45); MEAN CELL VOLUME 90.6 fl (81-97); MEAN CORPUSCULAR HEMOGLOBIN 30.2 pg (27-33); MEAN CORPUSCULAR HGB CONC 33.3 g/dl (32-36); MEAN PLATELET VOLUME 10.6 fl (7.4-10.4); MONO % 5.4 % (0-9); PLATELET COUNT 259 K/uL (130-400); RED BLOOD COUNT 4.57 M/uL (3.80-5.40); RED CELL DISTRIBUTION WIDTH 15.3 % (11.5-14.5); WHITE BLOOD COUNT W/O DIFF 15.1 K/uL (4.2-12.2)
[2018-03-19 07:11] LABS: ALB/GLOB RATIO 1.8 (1.1-1.8); ALBUMIN 4.2 g/dL (4.0-5.0); ALKALINE PHOSPHATASE 69 U/L (35-104); ALT/SGPT 13 U/L (<33); AST/SGOT 23 U/L (10.0-35.0); BLOOD UREA NITROGEN 15 mg/dL (8-23); CREATININE 0.6 mg/dL (0.5-0.9); EST GLOMERULAR FILTRATION RATE > 60 mL/min; GLUCOSE,RANDOM 96 mg/dL (74-109); TOTAL PROTEIN 6.5 g/dL (6.6-8.7)
[2018-03-19] MEDS ORDERED: METOCLOPRAMIDE 10 MG TABLET PO PRN (08:32)
[2018-03-19] MEDS: ACETAMINOPHEN 500 MG TABLET PO SCH ×3 (08:36→20:34)
[2018-03-19] MEDS: ONDANSETRON 4 MG ODT TABLET SL SCH ×3 (08:36→22:15)
[2018-03-19] MEDS ORDERED: MORPHINE SULFATE 10 MG/ML VIAL IVP PRN (08:37)
--- NOTE | 2018-03-19 11:33 | Physician Progress Note ---
Subjective - Date Date of Physician Progress Note: 03/19/18 - Subjective Subjective Comment: Pt feeling much better this AM. No complaints of pain, nausea, vomiting, or diarrhea. She was able to tolerate some clear liquids this AM without difficulty. Objective - Vital Signs Vital Signs: Vital Signs - Last 24 Hrs Temp Pulse Resp BP BP BP Pulse Ox 03/19/18 10:45 99.0 F 79 18 134/68 97 03/19/18 10:07 98.3 F 120/69 03/19/18 09:00 63 16 03/19/18 08:00 98.3 F 63 16 120/69 97 03/19/18 00:28 98.7 F 60 16 99/51 100 03/18/18 20:21 92 H 18 03/18/18 19:57 98.3 F 63 16 94/52 96 03/18/18 11:57 99.1 F 92 H 18 154/90 100 - General General Appearance: Alert, Oriented x3, No acute distress Limitations: No limitations - Head Head exam: Atraumatic Head exam detail: negative: Abrasion, Contusion - Eye Eye exam: Normal appearance - ENT ENT exam: Mucous membranes moist, Normal external ear exam Ear exam: Normal external inspection Nasal Exam: Normal inspection Mouth exam: Normal external inspection Throat exam: Normal inspection - Neck Neck exam: Normal inspection - Respiratory Respiratory exam: Normal lung sounds bilaterally. negative: Accessory muscle use, Decreased breath sounds, Rhonchi, Wheezes - Cardiovascular Cardiovascular Exam: Regular rate, Normal rhythm, Normal heart sounds - GI/Abdominal GI/Abdominal exam: Soft, Normal bowel sounds. negative: Guarding, Organomegaly , Pulsatile mass, Rebound, Tenderness - Rectal Rectal exam: Deferred - exam: Deferred - Extremities Extremities exam: Normal inspection. negative: Pedal edema, Tenderness - Back Back exam: Reports: Normal inspection. Denies: Paraspinal tenderness - Neurological Neurological exam: Alert, Normal gait, Oriented X3 - Psychiatric Psychiatric exam: Normal affect. negative: Anxious, Depressed - Skin Skin exam: Normal color. negative: Rash Assessment and Plan - Assessment and Plan (1) Nausea vomiting and diarrhea Plan: - Resolved. Switch all meds to PO - Zofran 4mg Q8 hours Lisa - Reglan Q6 hours PRN - Advance diet as tolerated. Counseled about which foods to avoid and given list. Current Visit: Yes Status: Acute Base Code: R11.2 - NAUSEA WITH VOMITING, UNSPECIFIED; R19.7 - DIARRHEA, UNSPECIFIED (2) Epigastric abdominal pain Plan: - Now resolved. - Likely 2/2 to chronic gastritis with acute worsening. - scheduled tylenol 1000mg Q 6 hours - Morphine 2mg Q 4 hours for breakthrough - Protonix 40mg BID Current Visit: Yes Status: Acute Base Code: R10.13 - EPIGASTRIC PAIN (3) Hypokalemia due to loss of potassium Plan: - Improved to 2.9 today via fluids. Will see if pt tolerates PO K+ today. - 2/2 to vomiting and diarrhea. Current Visit: Yes Status: Acute Base Code: E87.6 - HYPOKALEMIA (4) HTN (hypertension) Plan: - Pt's BP has been low/normal - will monitor and restart home HCTZ if needed. - For severe HTN Hydralazine PRN. Current Visit: Yes Status: Acute Qualifiers: Hypertension type: essential hypertension Qualified Code(s): I10 - Essential (primary) hypertension Base Code: I10 - ESSENTIAL (PRIMARY) HYPERTENSION - Disposition Disposition: Home, once tolerating regular diet and vomiting/ nausea controlled. K+ normal. Results - Labs Result Diagrams: 03/19/18 06:38 03/19/18 06:38 Labs Last 24 Hours: Laboratory Results - last 24 hr 03/18/18 03/18/18 03/19/18 12:15 14:41 06:38 WBC 15.1 H RBC 4.57 Hgb 13.8 Hct 41.4 MCV 90.6 MCH 30.2 MCHC 33.3 RDW 15.3 H Plt Count 259 MPV 10.6 H Gran % 78.0 Lymphocytes % 16.2 Monocytes % 5.4 Eosinophils % 0.3 Basophils % 0.1 Sodium 139 Potassium 2.4 L* Chloride 97 L Carbon Dioxide 22.0 Anion Gap 20.0 H BUN 21 Creatinine 0.7 Estimated GFR > 60 Random Glucose 184 H Calcium 9.0 Total Bilirubin AST ALT Alkaline Phosphatase Total Protein Albumin Globulin Albumin/Globulin Ratio Urine Color Yellow Urine Appearance Clear Urine pH 7.5 Ur Specific [place] 1.015 Urine Protein Negative Urine Glucose (UA) Negative Urine Ketones Negative Urine Blood Negative Urine Nitrite Negative Urine Bilirubin Negative Urine Urobilinogen 0.2 Ur Leukocyte Esterase Negative 03/19/18 06:38 WBC RBC Hgb Hct MCV MCH MCHC RDW Plt Count MPV Gran % Lymphocytes % Monocytes % Eosinophils % Basophils % Sodium 141 Potassium 2.9 L* Chloride 104 Carbon Dioxide 23.0 Anion Gap 14.0 BUN 15 Creatinine 0.6 Estimated GFR > 60 Random Glucose 96 Calcium 8.9 Total Bilirubin 1.00 AST 23 ALT 13 Alkaline Phosphatase 69 Total Protein 6.5 L Albumin 4.2 Globulin 2.3 Albumin/Globulin Ratio 1.8 Urine Color Urine Appearance Urine pH Ur Specific [place] Urine Protein Urine Glucose (UA) Urine Ketones Urine Blood Urine Nitrite Urine Bilirubin Urine Urobilinogen Ur Leukocyte Esterase DVT/PE Assessment - Risk for VTE Risk for VTE: No Risk Level: Low Risk Assessment Date: 03/18/18 Risk Assessment Time: 18:00 VTE Orders Placed or Will Be Placed: No VTE Reason for No Prophylaxis: Not Indicated (Pt is low risk) - Active Medicaitons Current Medications: Current Medications Acetaminophen (Tylenol 500mg Tab) 1,000 mg PO Q6H [facility] Last Admin: 03/19/18 08:36 Dose: 1,000 mg Hyoscyamine (Levsin Odt) 0.125 mg SL Q4H PRN PRN Reason: Abdominal cramping Metoclopramide HCl (Reglan) 10 mg PO Q6H PRN PRN Reason: NAUSEA Morphine Sulfate (Morphine Sulfate) 2 mg IVP NOW PRN PRN Reason: ABDOMINAL PAIN Ondansetron HCl (Zofran Odt) 4 mg SL Q8H [facility] Last Admin: 03/19/18 08:36 Dose: 4 mg Pantoprazole Sodium (Protonix) 40 mg PO DAILYAC [facility] Last Admin: 03/19/18 08:41 Dose: 40 mg Potassium Chloride (Potassium Chloride) 20 meq PO NOW [facility] AMI Plan - Labs Result Diagrams: 03/19/18 06:38 03/19/18 06:38
[2018-03-19] MEDS ORDERED: POTASSIUM CHLORIDE 20 MEQ/15ML CUP PO SCH (12:00)
[2018-03-19] MEDS: HYOSCYAMINE SULFATE ODT 0.125 MG TAB.SUBL SL PRN (15:20)
[2018-03-19] MEDS: SOD CHLOR 0.9% WITH KCL 40MEQ 40 MEQ/1,000 ML IV.SOLN IV SCH (17:00)
[2018-03-19] MEDS: POTASSIUM CHLORIDE 20 MEQ TABLET PO SCH ×2 (18:12→22:12)
[2018-03-19] MEDS: PANTOPRAZOLE SODIUM 40 MG TABLET PO SCH (22:12)
[2018-03-20] MEDS: ONDANSETRON 4 MG ODT TABLET SL SCH ×2 (00:32→08:56)
[2018-03-20] MEDS: SOD CHLOR 0.9% WITH KCL 40MEQ 40 MEQ/1,000 ML IV.SOLN IV SCH (02:51)
[2018-03-20] MEDS: ACETAMINOPHEN 500 MG TABLET PO SCH ×2 (02:51→08:56)
[2018-03-20] MEDS: HYOSCYAMINE SULFATE ODT 0.125 MG TAB.SUBL SL PRN (05:51)
[2018-03-20 06:38] LABS: BLOOD UREA NITROGEN 13 mg/dL (8-23); CREATININE 0.6 mg/dL (0.5-0.9); EST GLOMERULAR FILTRATION RATE > 60 mL/min; GLUCOSE,RANDOM 92 mg/dL (74-109)
[2018-03-20] MEDS ORDERED: PANTOPRAZOLE SODIUM 40 MG TABLET PO SCH (07:00)
[2018-03-20] MEDS: POTASSIUM CHLORIDE 20 MEQ TABLET PO SCH (08:56)
[2018-03-20] MEDS: PANTOPRAZOLE SODIUM 40 MG TABLET PO SCH (08:56)
--- NOTE | 2018-03-20 10:07 | Discharge Summary ---
Providers Discharge Summary Date: 03/20/18 Date of admission: 03/18/18 13:22 Attending physician: DILCIA CUMMINGS Primary care physician: CRISTIAN CABA D.O. Physical Exam - Vital Signs Vital Signs: Vital Signs - Last 24 Hrs Temp Pulse Resp BP BP Pulse Ox 03/20/18 04:00 66 18 130/78 96 03/19/18 20:00 98 F 80 16 97/63 95 03/19/18 10:45 99.0 F 79 18 134/68 97 03/19/18 10:07 98.3 F 120/69 - General General Appearance: Alert, Oriented x3, No acute distress Limitations: No limitations - Head Head exam: Atraumatic Head exam detail: negative: Abrasion, Contusion - Eye Eye exam: Normal appearance - ENT ENT exam: Mucous membranes moist, Normal external ear exam Ear exam: Normal external inspection Nasal Exam: Normal inspection Mouth exam: Normal external inspection Throat exam: Normal inspection - Neck Neck exam: Normal inspection - Respiratory Respiratory exam: Normal lung sounds bilaterally. negative: Accessory muscle use, Decreased breath sounds, Rhonchi, Wheezes - Cardiovascular Cardiovascular Exam: Regular rate, Normal rhythm, Normal heart sounds Peripheral Pulses: 0: Dorsalis Pedis (L), 3+: Radial (R), Radial (L), Dorsalis Pedis (R) - GI/Abdominal GI/Abdominal exam: Soft, Normal bowel sounds. negative: Guarding, Organomegaly , Pulsatile mass, Rebound, Tenderness - Rectal Rectal exam: Deferred - exam: Deferred - Extremities Extremities exam: Normal inspection. negative: Pedal edema, Tenderness - Back Back exam: Reports: Normal inspection. Denies: Paraspinal tenderness - Neurological Neurological exam: Alert, Normal gait, Oriented X3 - Psychiatric Psychiatric exam: Normal affect. negative: Anxious, Depressed - Skin Skin exam: Normal color. negative: Rash Hospitalization - Hospitalization Admission Diagnosis: Abd pain with vomiting and diarrhea - Problem List/Discharge Diagnosis (1) Epigastric abdominal pain Status: Acute Base Code: R10.13 - EPIGASTRIC PAIN (2) HTN (hypertension) Status: Acute Discharge Diagnosis: Hypertension type: essential hypertension Qualified Code(s): I10 - Essential (primary) hypertension Base Code: I10 - ESSENTIAL (PRIMARY) HYPERTENSION (3) Hypokalemia Status: Acute Base Code: E87.6 - HYPOKALEMIA (4) Nausea vomiting and diarrhea Status: Acute Base Code: R11.2 - NAUSEA WITH VOMITING, UNSPECIFIED; R19.7 - DIARRHEA, UNSPECIFIED (5) Full code status Status: Acute Base Code: Z78.9 - OTHER SPECIFIED HEALTH STATUS - Hospitalization Course Disposition: Home, Self-Care Hospital Course: Pt here 2/2 to nausea, vomiting, and diarrhea that started at 3AM this morning. She states she spontaneously started to have abdominal cramps and soon after had the previously mentioned symptoms along with intense abdominal pain which is described as burning. She denies any new food, medications, or trigger for this to happen. She has come in for similar symptoms in the past and has been seen by GI who wanted to do endoscopy for further evaluation. Her appointment with GI is not until March. Currently she denies any blood in the vomit and states that nothing is really coming up anymore. She said her last BM in the ED did have some bright red blood but otherwise has been brown. Her PCP did put her on nexium but per pt it was never given a refill and hasn't been back on it since it ran out. She is unsure if it helped. She only takes HTN medication currently. Her states that she has come to the ER for the exact same issue 4 times in the last year. She has not been able to tolerate a normal diet since her last admission and has only been eating soft foods such as jello and apple sauce. 03/20: Evaluation at bedside this morning the patient is doing well and only complains of one episode of abdominal pain lasting a few minutes last night. She has had a bowel movement and her nausea and vomiting has subsided. She was able to tolerate a full diet this morning and is currently eating breakfast. She is to be discharged with follow up with her PCP Dr. Caba within one week. Prescriptions have been provided for Omeprazole, Zofran and hyociamin. Procedures: Imaging and X-Rays 03/18/18 09:36 ABDOMEN, ACUTE SERIES [RAD] Stat Abnormal Labs: Abnormal Lab Results 03/18/18 03/18/18 03/18/18 Range/Units 09:25 09:41 14:41 WBC 18.7 H (4.2-12.2) K/uL RDW 14.8 H (11.5-14.5) % MPV 11.0 H (7.4-10.4) fl Neutrophils % 94.0 H (47-80) % Lymphocytes 3.0 L (16-45) % Potassium 2.6 L* 2.4 L* (3.4-4.5) mmol/L Chloride 97 L 97 L (98-107) mmol/L Carbon Dioxide (22-29) mmol/L Anion Gap 22.0 H 20.0 H (7-16) BUN 29 H (8-23) mg/dL Random Glucose 192 H 184 H (74-109) mg/dL Calcium (8.8-10.2) mg/dL Total Bilirubin 1.10 H (0.2-1.0) mg/dL Total Protein (6.6-8.7) g/dL 03/19/18 03/19/18 03/20/18 Range/Units 06:38 06:38 06:15 WBC 15.1 H (4.2-12.2) K/uL RDW 15.3 H (11.5-14.5) % MPV 10.6 H (7.4-10.4) fl Neutrophils % (47-80) % Lymphocytes (16-45) % Potassium 2.9 L* (3.4-4.5) mmol/L Chloride 110 H (98-107) mmol/L Carbon Dioxide 20.0 L (22-29) mmol/L Anion Gap (7-16) BUN (8-23) mg/dL Random Glucose (74-109) mg/dL Calcium 8.6 L (8.8-10.2) mg/dL Total Bilirubin (0.2-1.0) mg/dL Total Protein 6.5 L (6.6-8.7) g/dL Condition at Discharge: (3) Guarded Discharge Medications - Discharge Medications Home Medications: Ambulatory Orders Hydrochlorothiazide [Hctz] 50 mg PO DAILY 11/26/17 [Last Taken 02/01/18] Ondansetron HCl [Zofran] 4 mg PO Q6HR PRN #20 tablet 11/29/17 [Last Taken ] Potassium Chloride [Klor-Con] 20 meq PO DAILY 02/02/18 [Last Taken 02/01/18] Acetaminophen [Tylenol 500Mg Tab] 1,000 mg PO Q6H tablet 03/20/18 [Last Taken Unknown] Discharge Plan - Discharge Instructions Activity at Discharge: Resume Usual Activities As Tolerated Diet at Discharge: Low Fat, Low Cholesterol, Low Salt Diet Instructions: Hyoscyamine (By mouth), Omeprazole (By mouth), Ondansetron (By mouth), Acute Nausea and Vomiting (DC) Additional Instructions: 2 Activity: 2 Diet: Low Fat, Low Cholesterol Low Salt Diet 2 Consults: [] 2 Follow Up: [] 2 Dressing/Wound Care: (Type) (Change) 2 Additional: [] Follow up with your PCP: Dr. Caba in 1 week. You have been prescribed medications to continue taking at home: (The scripts are written and in the physical chart) 1) Omeprazole 40mg twice daily. 2) Zofran 4mg every 8hours when needed. 3) Hyoscyamine 0.125mg 1 tab every 4 hrs as needed. Try to remain as hydrated by drinking lots of water. If you have acute pain or return of persistent vomiting return to your nearest ED. Quality Measures - Quality Measures Quality Measures: Advance Directives, Documentation of Current Medications in Medical Record, Elder Maltreatment Screen and Follow-Up Plan, Screening for High Blood Pressure and F/U Documented - Current Medications Quality Measure: Measure #130: Documentation of Current Medications Documentation of Current Medications: <Current Medications Documented/Reviewed> [G8425] - Blood Pressure Screening Quality Measure: Screening for High Blood Pressure and Follow-Up Documented Does Patient Have Any of the Following: Active Dx of HTN Blood Pressure Classification: Pre-Hypertensive BP Reading Systolic Measurement: 120 Diastolic Measurement: 69 Screening for High Blood Pressure: Patient Exclusion, Hx of HTN [G9744] - Advance Directives Quality Measure: Measure #47: Care Plan Advance Directives Established: No Advance Directives Information Provided To Patient: Declined Advance Directives on File: No Living Will: No Power of Christmas Tree Farmer: No Advance Care Planning: <Care Plan/Decision Maker Documented; Discussed & Documented> [[id number]] - Elder Abuse Suspicion Index Screening: Elder Abuse Suspicion Index Screening Rely on people for bathing, dressing, shopping, banking, etc: Yes Prevented from getting food, clothes, medication, etc: No Made to feel shamed or threatened by someone: No Forced to sign papers or use money against will: No Feel afraid, touched in ways not wanted or hurt physically: No Poor eye contact, withdrawn, malnourished, cuts or bruises: Yes Screening Result: Positive result, One YES response in questions 2-6. EASI Reference Information: Brian BYNUM, Gadiel C, Mee Pop, Milka Hall.Development and validation of a tool to assist physicians identification of elder abuse: The Elder Abuse Suspicion Index (EASI ). Journal of Elder Abuse and Neglect, 2008; 20 (3): 276-300. - Elder Maltreatment Screen Quality Measures: Elder Maltreatment Screen and Follow-Up Plan Elder Maltreatment Screen: <Negative, No Follow-Up Plan Required> [G8734]
== END 2018-03-20 10:45 | disposition home or self-care (01) | DRG 392 ==
LOC: ER 09:06 → MEDSURG 13:22
PROVIDERS: ADMIT Internal Medicine; ATTEND Internal Medicine
DX: R10.13 Epigastric pain (principal); R19.7 Diarrhea, unspecified; E87.6 Hypokalemia; I10 Essential (primary) hypertension; M19.90 Unspecified osteoarthritis, unspecified site
CPT/HCPCS: 74022; 80048; 80053; 81003; 85025; 85027; 87427; 87493; 96372; 96374; 96375; 99223; 99233; 99239; 99285; C9113; J2270; J2550; J2765; J3490; J7030